=== PATIENT | male | born 1955 | race Caucasian/White ===

== ENCOUNTER 2018-09-17 05:50 | Inpatient (IN) | payer MEDICARE, OTHER ==
[~2018-09-17] VITALS: Ht 175.3 cm; Wt 66.8 kg
[2018-09-17] VITALS (11 sets, daily range): BP systolic 83–100; BP diastolic 53–69
[2018-09-17] MEDS ORDERED: azithromycin/NS 500mg/250ml 250 ML IV ONE ×2 (06:20→20:00)
[2018-09-17] MEDS ORDERED: NAPR220T67 PO ×2 (06:38→12:17)
[2018-09-17] MEDS ORDERED: ipratropium/albuterol 3ml nebule NEB ONE (06:55)
[2018-09-17] MEDS ORDERED: normal saline 1000ML IV soln IVB ONE ×3 (06:55→09:05)
[2018-09-17] MEDS ORDERED: fentaNYL/PF 50MCG/1 ML 2ML syringe IV ONE (07:10)
--- NOTE | 2018-09-17 07:11 | NUR ---
u Addendum: 09/17/18 at 0712 by RWILCOX US AT BEDSIDE
[2018-09-17] MEDS: K, MAG and/or Phos replacement - Verify level? MC SCH (08:00)
[2018-09-17] MEDS ORDERED: CefTRIAXone/D5W-Rocephin 1gm 50 ML IV ONE (08:00)
[2018-09-17] MEDS ORDERED: pantoprazole 40 MG vial IV SCH (08:00)
[2018-09-17] MEDS: CefTRIAXone/D5W-Rocephin 1gm 50 ML IV SCH (08:00)
--- NOTE | 2018-09-17 08:31 | NUR ---
PT AWARE WE NEED URINE. NOT FEELING A SENSATION THAT HE HAS TO URINATE. GIVING FLUIDS
[2018-09-17 08:32] LABS: BASOPHILS % (AUTO) 0 % (0-1); EOSINOPHILS # (AUTO) 0.1 X10'3 (0-0.9); EOSINOPHILS % (AUTO) 0.4 % (0-6); HEMATOCRIT 33.5 % (42.0-52.0); HEMOGLOBIN 10.8 g/dl (14.0-17.9); LYMPHOCYTES # (AUTO) 1.2 X10'3 (1.1-4.8); LYMPHOCYTES % (AUTO) 4.7 % (21-51); MEAN CORPUSCULAR HEMOGLOBIN 24.9 PG (27.0-31.0); MEAN CORPUSCULAR HGB CONC 32.3 g/dL (33.0-36.5); MEAN PLATELET VOLUME 7.7 FL (7.4-10.4); MONOCYTES # (AUTO) 0.3 X10'3 (0-0.9); MONOCYTES % (AUTO) 1.3 % (2-12); NEUTROPHILS # (AUTO) 22.8 X10'3 (1.8-7.7); NEUTROPHILS % (AUTO) 93.6 % (42-75); PLATELET COUNT 421 X10'3 (140-440); RED BLOOD COUNT 4.34 X10'6 (4.70-6.10); WHITE BLOOD COUNT 24.4 X10'3 (4.5-11.0)
[2018-09-17 08:46] LABS: ALANINE AMINOTRANSFERASE 16 U/L (12-78); ALBUMIN 1.8 G/DL (3.4-5.0); ALBUMIN/GLOBULIN RATIO 0.3 (1.1-1.5); ALKALINE PHOSPHATASE 191 IU/L (46-116); ANION GAP 13 (8-16); ASPARTATE AMINO TRANSFERASE 23 U/L (10-37); BILIRUBIN,TOTAL 1.6 MG/DL (0.1-1.0); BLOOD UREA NITROGEN 89 MG/DL (7-18); BUN/CREATININE RATIO 12.4 (5.4-32.0); CHLORIDE 97 MMOL/L (99-107); GLUCOSE 65 MG/DL (70-104); LIPASE < 50 U/L (73-393); POTASSIUM 4.9 MMOL/L (3.5-5.1); SODIUM 128 MMOL/L (135-145); TOTAL CARBON DIOXIDE 17.8 MMOL/L (24-32); TOTAL PROTEIN 7.3 G/DL (6.4-8.2); eGFR 8 ML/MIN
[2018-09-17 09:25] LABS: ANISOCYTOSIS 1+; MICROCYTOSIS 1+; PLATELET ESTIMATE NORMAL; TOTAL CELLS COUNTED 100
[2018-09-17 09:26] LABS: BURR CELLS 2+
[2018-09-17] MEDS ORDERED: normal saline 1000ml 1,000 ML IV ONE (09:50)
--- NOTE | 2018-09-17 10:16 | NUR ---
PT SITTING IN CHAIR TO HELP HIM BE MORE COMFORTABLE. PT STATES HE FEELS BETTER THAN HE HAS IN DAYS.
--- NOTE | 2018-09-17 10:50 | NUR ---
PT STARTED TO FEEL A LITTLE LIGHTHEADED WHEN TRANSFERING BACK TO THE BED. PT AWARE HE HAS TO STAY IN THE BED NOW DUE TO BP AND SYMPTOMS. PICC NURSE HAS.
--- NOTE | 2018-09-17 11:03 | NUR ---
PICC LINE NURSE AT BEDSIDE TO PUT THE PICC LINE IN.
[2018-09-17] MEDS ORDERED: magnesium 2GM in 50ml NS 50 ML IV PRN (11:30)
[2018-09-17] MEDS ORDERED: potassium Cl 20 mEq SR tablet PO PRN ×2 (11:30)
[2018-09-17] MEDS ORDERED: normal saline 1000ml 1,000 ML IV SCH (11:30)
[2018-09-17] MEDS ORDERED: acetaminophen 325mg tablet PO PRN (11:30)
[2018-09-17] MEDS ORDERED: Neutra Phos packet PO PRN (11:30)
[2018-09-17] MEDS ORDERED: sodium phosphate inj. 30 MMOL in dextrose 5%-water 250 ML IV PRN (11:30)
[2018-09-17] MEDS ORDERED: ondansetron/PF 4mg/2ml inj IV PRN (11:30)
[2018-09-17] MEDS ORDERED: magnesium Cl slow-release 64mg tablet PO PRN (11:30)
[2018-09-17] MEDS ORDERED: magnesium 4gm in 100ml NS 100 ML IV PRN (11:30)
[2018-09-17] MEDS ORDERED: sodium phosphate inj. 15 MMOL in dextrose 5%-water 150 ML IV PRN (11:30)
--- NOTE | 2018-09-17 11:39 | NUR ---
ADMISSION ORDERS HAVE BEEN PLACED. NOTICING THE MD PUT AN ORDER FOR THE PT TO GET PROTONIX AND ANOTHER MED ORDER FOR 8AM TODAY BUT IT NOW MAKES IT LOOKS LIKE THE MED IS OVERDUE BUT THE ORDER WAS JUST PLACED.
[2018-09-17] MEDS ORDERED: ESOMEPRAZOLE 40 MG VIAL IV ONE (12:05)
[2018-09-17 12:13] LABS: MAGNESIUM 1.6 MG/DL (1.5-2.4)
--- NOTE | 2018-09-17 12:29 | NUR ---
report to Precious ARAGON. pt is resting quietly on gurney, resp even and unlabored, skin p/w/d
--- NOTE | 2018-09-17 12:30 | NUR ---
patient transferred to the CICU from ER, patient is on 2 l NC , states no home oxygen. HR is 115 ST BP is 85/57. Patient is able to move from gurney to ICU bed without help and he is alert and oriented. 2 RN skin assessment completed and optifoam placed on sacrum per protocol. Patient oriented to the unit and given call light.
--- NOTE | 2018-09-17 18:27 | NUR ---
Problems reprioritized. Patient report given, questions answered & plan of care reviewed with Nolan ARAGON.
--- NOTE | 2018-09-17 18:30 | NUR ---
Patient in room CICU 2011. I have received report from Precious ARAGON and had the opportunity to ask questions and assume patient care.
[2018-09-17] MEDS: docusate sod 100mg capsule PO SCH (20:15)
[2018-09-17] MEDS: heparin, porcine 5000 units/ml vial SQ SCH (20:15)
[2018-09-17 23:30] LABS: CREATINE KINASE 20 U/L (39-308)
[2018-09-18] VITALS (23 sets, daily range): BP systolic 87–129; BP diastolic 55–77
[2018-09-18 02:55] LABS: BASOPHILS # (AUTO) 0.1 X10'3 (0-0.2); BASOPHILS % (AUTO) 0.2 % (0-1); EOSINOPHILS # (AUTO) 0.1 X10'3 (0-0.9); EOSINOPHILS % (AUTO) 0.2 % (0-6); HEMATOCRIT 27.8 % (42.0-52.0); HEMOGLOBIN 8.9 g/dl (14.0-17.9); LYMPHOCYTES # (AUTO) 3.4 X10'3 (1.1-4.8); LYMPHOCYTES % (AUTO) 10.8 % (21-51); MEAN CORPUSCULAR HEMOGLOBIN 24.5 PG (27.0-31.0); MEAN CORPUSCULAR HGB CONC 32.2 g/dL (33.0-36.5); MEAN CORPUSCULAR VOLUME 76.1 FL (78-98); MEAN PLATELET VOLUME 7.6 FL (7.4-10.4); MONOCYTES % (AUTO) 3.2 % (2-12); NEUTROPHILS # (AUTO) 26.7 X10'3 (1.8-7.7); NEUTROPHILS % (AUTO) 85.6 % (42-75); PLATELET COUNT 391 X10'3 (140-440); RED BLOOD COUNT 3.65 X10'6 (4.70-6.10); RED CELL DISTRIBUTION WIDTH 17.8 % (11.5-14.5)
[2018-09-18 03:06] LABS: WHITE BLOOD COUNT 31.2 X10'3 (4.5-11.0)
[2018-09-18 03:13] LABS: ALANINE AMINOTRANSFERASE 13 U/L (12-78); ALBUMIN 1.4 G/DL (3.4-5.0); ALBUMIN/GLOBULIN RATIO 0.3 (1.1-1.5); ALKALINE PHOSPHATASE 169 IU/L (46-116); ANION GAP 14 (8-16); ASPARTATE AMINO TRANSFERASE 20 U/L (10-37); BILIRUBIN,TOTAL 1.8 MG/DL (0.1-1.0); BLOOD UREA NITROGEN 93 MG/DL (7-18); BUN/CREATININE RATIO 12.7 (5.4-32.0); CALCIUM 8.2 MG/DL (8.5-10.1); CHLORIDE 99 MMOL/L (99-107); CREATININE 7.35 MG/DL (0.60-1.10); GLUCOSE 54 MG/DL (70-104); MAGNESIUM 1.7 MG/DL (1.5-2.4); PHOSPHORUS 4.3 MG/DL (2.3-4.5); POTASSIUM 5.9 MMOL/L (3.5-5.1); SODIUM 129 MMOL/L (135-145); TOTAL CARBON DIOXIDE 16.4 MMOL/L (24-32); TOTAL PROTEIN 6.3 G/DL (6.4-8.2); eGFR 8 ML/MIN
[2018-09-18 03:31] LABS: TOTAL CELLS COUNTED 100
[2018-09-18 03:32] LABS: ANISOCYTOSIS 1+; BURR CELLS 1+; MICROCYTOSIS 1+; PLATELET ESTIMATE NORMAL
--- NOTE | 2018-09-18 04:00 | NUR ---
pt bladder scanned at this time. showed no urine in bladder. continue to monitor
--- NOTE | 2018-09-18 05:06 | NUR ---
Ciaran Anguiano was notified regarding critical WBC's of 31. he is aware. no change in orders at this time.
[2018-09-18 05:26] LABS: OXYGEN SATURATION (MIXED VEN) 67.3 % (60-80); PO2 MIXED VENOUS (TEMP COR) 36.5 mmHg (35-46)
--- NOTE | 2018-09-18 06:26 | NUR ---
Problems reprioritized. Patient report given, questions answered & plan of care reviewed with Anbial ARAGON.
--- NOTE | 2018-09-18 06:54 | NUR ---
Patient in room CICU 2011. I have received report from Nolan ARAGON and had the opportunity to ask questions and assume patient care.
--- NOTE | 2018-09-18 07:31 | NUR ---
pt blood sugar 25 by accuchek. Pt sitting up in chair alert and oriented. Pt am labs showed a BS of 54. no interventions at that time. BS 65 on admit. Pt given 240ml of orange juice. will repeat BS 15 minutes after drinking Oj
[2018-09-18] MEDS: ESOMEPRAZOLE 40 MG VIAL IV SCH (07:55)
[2018-09-18] MEDS: CefTRIAXone/D5W-Rocephin 1gm 50 ML IV SCH (07:55)
[2018-09-18] MEDS: docusate sod 100mg capsule PO SCH ×2 (07:56→19:24)
[2018-09-18] MEDS: heparin, porcine 5000 units/ml vial SQ SCH ×2 (07:56→19:30)
[2018-09-18] MEDS: K, MAG and/or Phos replacement - Verify level? MC SCH (07:57)
[2018-09-18] MEDS ORDERED: dextrose 50%-water 50ml dispensing syringe IV ONE ×2 (08:13→08:25)
--- NOTE | 2018-09-18 08:23 | NUR ---
PT'S REPEAT BS 27. DEXTROSE 50ML IV ORDERED PER PROTOCOL AND GIVEN TO PT. REPEAT BS 98.
[2018-09-18] MEDS: sucralfate 1gm/10ml UD suspension PO SCH ×3 (11:59→23:13)
--- NOTE | 2018-09-18 12:52 | NUR ---
Problems reprioritized. Patient report given, questions answered & plan of care reviewed with JOCELYNN ARAGON.
[2018-09-18] MEDS: azithromycin/NS 500mg/250ml 250 ML IV SCH (13:19)
--- NOTE | 2018-09-18 14:19 | NUR ---
patient taken to nuc med
--- NOTE | 2018-09-18 15:02 | NUR ---
patient still at nuc med
--- NOTE | 2018-09-18 15:07 | NUR ---
patient returned to CICU
--- NOTE | 2018-09-18 16:08 | NUR ---
press technician at the bedside
--- NOTE | 2018-09-18 18:31 | NUR ---
Patient in room CICU 2011. I have received report from Precious ARAGON and had the opportunity to ask questions and assume patient care.
[2018-09-18] MEDS: lactobacillus rhamnosus 10,000 MMU CELLS/CAPSULE PO SCH (19:25)
[2018-09-18] MEDS ORDERED: dextrose ORAL solution 15 GM/59 ML bottle PO PRN (19:45)
[2018-09-18] MEDS ORDERED: dextrose 50%-water 50ml dispensing syringe IV PRN ×2 (19:45)
[2018-09-18] MEDS ORDERED: glucagon, human recombinant 1mg kit SUBCUT PRN (19:45)
[2018-09-18] MEDS ORDERED: dextrose 5%-1/2 normal saline 1,000 ML IV SCH (22:40)
[2018-09-18] MEDS: dextrose ORAL solution 15 GM/59 ML bottle PO PRN ×2 (22:44→23:15)
[2018-09-19] VITALS (23 sets, daily range): BP systolic 108–148; BP diastolic 47–88
[2018-09-19] MEDS ORDERED: phenylephrine inj 20 MG in normal saline 250ml IV soln 250 ML IV PRN (01:37)
[2018-09-19] MEDS ORDERED: DOBUTamine-DoBUTrex 500mg/D5W 250 ML IV PRN (01:40)
[2018-09-19] MEDS: dextrose ORAL solution 15 GM/59 ML bottle PO PRN (02:20)
[2018-09-19 02:33] LABS: BASOPHILS # (AUTO) 0.1 X10'3 (0-0.2); BASOPHILS % (AUTO) 0.2 % (0-1); EOSINOPHILS # (AUTO) 0.1 X10'3 (0-0.9); EOSINOPHILS % (AUTO) 0.4 % (0-6); HEMATOCRIT 29.4 % (42.0-52.0); HEMOGLOBIN 9.6 g/dl (14.0-17.9); LYMPHOCYTES # (AUTO) 0.8 X10'3 (1.1-4.8); LYMPHOCYTES % (AUTO) 2.6 % (21-51); MEAN CORPUSCULAR HEMOGLOBIN 24.7 PG (27.0-31.0); MEAN CORPUSCULAR HGB CONC 32.6 g/dL (33.0-36.5); MEAN CORPUSCULAR VOLUME 75.8 FL (78-98); MEAN PLATELET VOLUME 7.6 FL (7.4-10.4); MONOCYTES # (AUTO) 1.7 X10'3 (0-0.9); MONOCYTES % (AUTO) 5.5 % (2-12); NEUTROPHILS # (AUTO) 28.9 X10'3 (1.8-7.7); NEUTROPHILS % (AUTO) 91.3 % (42-75); PLATELET COUNT 413 X10'3 (140-440); RED BLOOD COUNT 3.88 X10'6 (4.70-6.10); RED CELL DISTRIBUTION WIDTH 17.8 % (11.5-14.5)
[2018-09-19 02:35] LABS: WHITE BLOOD COUNT 31.7 X10'3 (4.5-11.0)
[2018-09-19 02:42] LABS: ALANINE AMINOTRANSFERASE 14 U/L (12-78); ALBUMIN 1.4 G/DL (3.4-5.0); ALBUMIN/GLOBULIN RATIO 0.3 (1.1-1.5); ALKALINE PHOSPHATASE 356 IU/L (46-116); ANION GAP 13 (8-16); ASPARTATE AMINO TRANSFERASE 29 U/L (10-37); BILIRUBIN,TOTAL 2.1 MG/DL (0.1-1.0); BLOOD UREA NITROGEN 106 MG/DL (7-18); BUN/CREATININE RATIO 13.4 (5.4-32.0); CALCIUM 8.5 MG/DL (8.5-10.1); CHLORIDE 96 MMOL/L (99-107); CREATININE 7.94 MG/DL (0.60-1.10); GLUCOSE 73 MG/DL (70-104); MAGNESIUM 1.9 MG/DL (1.5-2.4); PHOSPHORUS 3.7 MG/DL (2.3-4.5); POTASSIUM 5.6 MMOL/L (3.5-5.1); SODIUM 125 MMOL/L (135-145); TOTAL CARBON DIOXIDE 15.8 MMOL/L (24-32); TOTAL PROTEIN 6.6 G/DL (6.4-8.2); eGFR 7 ML/MIN
[2018-09-19 02:53] LABS: ANISOCYTOSIS 1+; BURR CELLS 1+; HYPOCHROMASIA 1+; MICROCYTOSIS 1+; PLATELET ESTIMATE NORMAL; TOTAL CELLS COUNTED 100
[2018-09-19] MEDS: dextrose 5%-normal saline 1,000 ML IV SCH ×2 (03:44→20:36)
[2018-09-19] MEDS ORDERED: methylPREDNISolone sod succ 125mg/2ml vial IV ONE (03:45)
--- NOTE | 2018-09-19 06:30 | NUR ---
Problems reprioritized. Patient report given, questions answered & plan of care reviewed with Precious ARAGON.
--- NOTE | 2018-09-19 06:55 | NUR ---
I have reviewed and agree with all medications administered and interventions performed by Student Chay Burns
[2018-09-19] MEDS: K, MAG and/or Phos replacement - Verify level? MC SCH (08:00)
[2018-09-19] MEDS: docusate sod 100mg capsule PO SCH ×2 (08:00→20:00)
[2018-09-19] MEDS: lactobacillus rhamnosus 10,000 MMU CELLS/CAPSULE PO SCH ×2 (08:33→20:00)
[2018-09-19] MEDS: azithromycin/NS 500mg/250ml 250 ML IV SCH (08:33)
[2018-09-19] MEDS: heparin, porcine 5000 units/ml vial SQ SCH ×3 (08:33→22:43)
[2018-09-19] MEDS: CefTRIAXone/D5W-Rocephin 1gm 50 ML IV SCH (08:33)
[2018-09-19] MEDS: sucralfate 1gm/10ml UD suspension PO SCH ×3 (08:35→21:00)
[2018-09-19] MEDS: ESOMEPRAZOLE 40 MG VIAL IV SCH (08:35)
--- NOTE | 2018-09-19 08:48 | NUR ---
patient more confused today, pulling at lines and asking odd questions
[2018-09-19] MEDS ORDERED: normal saline 1000ml 250 ML IV PRN (09:35)
[2018-09-19] MEDS ORDERED: epoetin 20,000 units/ml inj IV ONE (09:35)
[2018-09-19] MEDS ORDERED: albumin (human) 25% 100ml IV 100 ML IV PRN (09:35)
[2018-09-19] MEDS ORDERED: heparin 1,000 units/ml 10ml inj HE ONE ×2 (09:40)
--- NOTE | 2018-09-19 09:46 | NUR ---
order received for tunnel dialysis cath and dialysis today , patient is aware and IR notified
[2018-09-19] MEDS ORDERED: LORazepam 2 mg/ml vial IV ONE (11:00)
[2018-09-19] MEDS ORDERED: lactulose 20gm/30ml cup PO PRN (11:30)
--- NOTE | 2018-09-19 11:30 | NUR ---
order received to give this patient 1mg ativan per Dr. reed due to increased agitation and anxiety
--- NOTE | 2018-09-19 11:33 | NUR ---
patient more confused than this morning, aware, Dr. Acevedo attempted to get consent at the bedside and patient was too confused to consent. Yeimi, the ex was named by the patient upon admission to make decisions for him in the event that he was unable to. Dr. Acevedo will be reaching out to her
[2018-09-19] MEDS ORDERED: heparin 1,000 units/ml 10ml inj ICATH ONE (15:20)
[2018-09-19] MEDS ORDERED: midazolam 2 mg/2 ml injection IV PRN (15:20)
[2018-09-19] MEDS ORDERED: fentaNYL/PF 50MCG/1 ML 2ML syringe IV PRN (15:20)
[2018-09-19] MEDS ORDERED: LIDOcaine 1%/PF 5ML 10 MG/ML VIAL SQ ONE (15:20)
--- NOTE | 2018-09-19 15:27 | NUR ---
patient being transferred to IR
[2018-09-19] MEDS ORDERED: LIDOcaine 1%/PF 5ML 10 MG/ML VIAL ONE (15:33)
[2018-09-19] MEDS ORDERED: heparin 1,000unit/ml 10ml vial 10 ML ONE (15:54)
[2018-09-19] MEDS ORDERED: midazolam 2 mg/2 ml injection ONE (15:55)
[2018-09-19] MEDS ORDERED: fentaNYL/PF 50MCG/1 ML 2ML syringe ONE (15:55)
[2018-09-19] MEDS: LORazepam 2 mg/ml vial IV PRN (17:18)
--- NOTE | 2018-09-19 17:30 | NUR ---
new order for ativan received from Dr. Bautista to keep patient calm during dialysis, patient was trying to sit straight up and pulling at lines
--- NOTE | 2018-09-19 18:15 | NUR ---
Patient in room CICU 2011. I have received report from JOCELYNN ARAGON and had the opportunity to ask questions and assume patient care.
--- NOTE | 2018-09-19 18:30 | NUR ---
pt is receiving dialysis, rn at bedside. pt is in a deep sleep, vital signs are stable, respirations are even and unlabored. pt responsive to deep pain. pt received ativan prior to shift change, medication effect therapeutic. pt is not awake enough to eat dinner at this time. will continue to monitor
--- NOTE | 2018-09-19 21:12 | NUR ---
pt remains responsive to deep pain. pt is not waking up enough to ensure pt will be able to safely swallow medications. vital signs satable. respirations even and unlabored. no change in condition. will continue to monitor.
[2018-09-20] VITALS (24 sets, daily range): BP systolic 78–127; BP diastolic 45–79
--- NOTE | 2018-09-20 02:00 | NUR ---
pt wakes up confused and tries to throw his legs out of bed and attempts to pull at lines. pt quickly wears himself out however he is not orientable. when the patient is asked questions pt generally responds with "get me out of her you fucking bitch" and attempts to kick you. pt does follow commands and will let lines go and lie down when asked. will continue to monitor.
[2018-09-20 02:51] LABS: BASOPHILS # (AUTO) 0.1 X10'3 (0-0.2); BASOPHILS % (AUTO) 0.3 % (0-1); EOSINOPHILS % (AUTO) 0 % (0-6); HEMATOCRIT 30.2 % (42.0-52.0); HEMOGLOBIN 9.8 g/dl (14.0-17.9); LYMPHOCYTES # (AUTO) 0.7 X10'3 (1.1-4.8); LYMPHOCYTES % (AUTO) 2.7 % (21-51); MEAN CORPUSCULAR HEMOGLOBIN 24.5 PG (27.0-31.0); MEAN CORPUSCULAR HGB CONC 32.4 g/dL (33.0-36.5); MEAN CORPUSCULAR VOLUME 75.6 FL (78-98); MEAN PLATELET VOLUME 7.7 FL (7.4-10.4); MONOCYTES # (AUTO) 2.2 X10'3 (0-0.9); MONOCYTES % (AUTO) 8.6 % (2-12); NEUTROPHILS # (AUTO) 22.9 X10'3 (1.8-7.7); NEUTROPHILS % (AUTO) 88.4 % (42-75); PLATELET COUNT 397 X10'3 (140-440); RED BLOOD COUNT 3.99 X10'6 (4.70-6.10); RED CELL DISTRIBUTION WIDTH 17.9 % (11.5-14.5)
[2018-09-20 02:58] LABS: ALANINE AMINOTRANSFERASE 10 U/L (12-78); ALBUMIN 1.2 G/DL (3.4-5.0); ALBUMIN/GLOBULIN RATIO 0.2 (1.1-1.5); ALKALINE PHOSPHATASE 262 IU/L (46-116); ANION GAP 12 (8-16); ASPARTATE AMINO TRANSFERASE 20 U/L (10-37); BLOOD UREA NITROGEN 72 MG/DL (7-18); BUN/CREATININE RATIO 12.2 (5.4-32.0); CALCIUM 8.2 MG/DL (8.5-10.1); CHLORIDE 97 MMOL/L (99-107); CREATININE 5.88 MG/DL (0.60-1.10); GLUCOSE 107 MG/DL (70-104); MAGNESIUM 2.1 MG/DL (1.5-2.4); PHOSPHORUS 6.2 MG/DL (2.3-4.5); POTASSIUM 5.2 MMOL/L (3.5-5.1); SODIUM 130 MMOL/L (135-145); TOTAL CARBON DIOXIDE 21.2 MMOL/L (24-32); TOTAL PROTEIN 6.1 G/DL (6.4-8.2); eGFR 10 ML/MIN
[2018-09-20 03:00] LABS: WHITE BLOOD COUNT 25.9 X10'3 (4.5-11.0)
--- NOTE | 2018-09-20 06:10 | NUR ---
Patient in room CICU 2011. I have received report from Nayla ARAGON and had the opportunity to ask questions and assume patient care.
[2018-09-20 07:58] LABS: ANISOCYTOSIS 1+; HYPOCHROMASIA 1+; MICROCYTOSIS 1+; PLATELET ESTIMATE NORMAL; POIKILOCYTOSIS FEW; POLYCHROMASIA FEW; TARGET CELLS FEW; TOTAL CELLS COUNTED 100
[2018-09-20] MEDS: CefTRIAXone/D5W-Rocephin 1gm 50 ML IV SCH (07:59)
[2018-09-20] MEDS: lactobacillus rhamnosus 10,000 MMU CELLS/CAPSULE PO SCH ×2 (08:00→19:45)
[2018-09-20] MEDS ORDERED: heparin 1,000 units/ml 10ml inj HE ONE ×2 (08:00)
[2018-09-20] MEDS ORDERED: heparin 1,000unit/ml 10ml vial 10 ML IV ONE (08:00)
[2018-09-20] MEDS: docusate sod 100mg capsule PO SCH ×2 (08:00→19:45)
[2018-09-20] MEDS: azithromycin/NS 500mg/250ml 250 ML IV SCH (08:00)
[2018-09-20] MEDS ORDERED: albumin (human) 25% 100ml IV 100 ML IV PRN (08:00)
[2018-09-20] MEDS: K, MAG and/or Phos replacement - Verify level? MC SCH (08:00)
[2018-09-20] MEDS ORDERED: normal saline 1000ml 250 ML IV PRN (08:00)
[2018-09-20] MEDS ORDERED: epoetin 20,000 units/ml inj IV ONE (08:00)
[2018-09-20] MEDS: dextrose 5%-normal saline 1,000 ML IV SCH (08:06)
[2018-09-20] MEDS: sucralfate 1gm/10ml UD suspension PO SCH ×4 (08:15→19:45)
[2018-09-20] MEDS: ESOMEPRAZOLE 40 MG VIAL IV SCH (08:15)
[2018-09-20] MEDS: heparin, porcine 5000 units/ml vial SQ SCH ×2 (08:34→19:46)
[2018-09-20] MEDS: LORazepam 2 mg/ml vial IV PRN (09:17)
--- NOTE | 2018-09-20 09:30 | NUR ---
Dialysis here, patient to be given Ativan for anxiety if continues to be restless.
--- NOTE | 2018-09-20 12:41 | NUR ---
Patient resting with eyes closed, dialysis almost complete. 1 L removed. Sitter at bedside.
--- NOTE | 2018-09-20 18:20 | NUR ---
Problems reprioritized. Patient report given, questions answered & plan of care reviewed with FAHEEM ARAGON.
--- NOTE | 2018-09-20 18:30 | NUR ---
Patient in room CICU 2012. I have received report from MAHESH Golden and had the opportunity to ask questions and assume patient care.
[2018-09-21] VITALS (24 sets, daily range): BP systolic 112–138; BP diastolic 66–84
[2018-09-21] MEDS: dextrose 5%-normal saline 1,000 ML IV SCH ×2 (01:42→19:52)
[2018-09-21 02:28] LABS: BASOPHILS # (AUTO) 0.1 X10'3 (0-0.2); BASOPHILS % (AUTO) 0.2 % (0-1); EOSINOPHILS # (AUTO) 0.1 X10'3 (0-0.9); EOSINOPHILS % (AUTO) 0.3 % (0-6); HEMOGLOBIN 9.3 g/dl (14.0-17.9); LYMPHOCYTES # (AUTO) 2.4 X10'3 (1.1-4.8); LYMPHOCYTES % (AUTO) 9.1 % (21-51); MEAN CORPUSCULAR HEMOGLOBIN 24.9 PG (27.0-31.0); MEAN CORPUSCULAR HGB CONC 33.3 g/dL (33.0-36.5); MEAN CORPUSCULAR VOLUME 74.6 FL (78-98); MEAN PLATELET VOLUME 7.6 FL (7.4-10.4); MONOCYTES # (AUTO) 1.5 X10'3 (0-0.9); MONOCYTES % (AUTO) 5.7 % (2-12); NEUTROPHILS % (AUTO) 84.7 % (42-75); PLATELET COUNT 422 X10'3 (140-440); RED BLOOD COUNT 3.76 X10'6 (4.70-6.10); RED CELL DISTRIBUTION WIDTH 17.6 % (11.5-14.5)
[2018-09-21 02:29] LABS: WHITE BLOOD COUNT 25.9 X10'3 (4.5-11.0)
[2018-09-21 02:39] LABS: ALANINE AMINOTRANSFERASE 14 U/L (12-78); ALBUMIN 1.2 G/DL (3.4-5.0); ALBUMIN/GLOBULIN RATIO 0.2 (1.1-1.5); ALKALINE PHOSPHATASE 289 IU/L (46-116); ANION GAP 8 (8-16); ASPARTATE AMINO TRANSFERASE 30 U/L (10-37); BILIRUBIN,TOTAL 0.9 MG/DL (0.1-1.0); BLOOD UREA NITROGEN 51 MG/DL (7-18); BUN/CREATININE RATIO 11.3 (5.4-32.0); CALCIUM 7.4 MG/DL (8.5-10.1); CHLORIDE 99 MMOL/L (99-107); GLUCOSE 89 MG/DL (70-104); MAGNESIUM 1.9 MG/DL (1.5-2.4); PHOSPHORUS 3.1 MG/DL (2.3-4.5); POTASSIUM 4.1 MMOL/L (3.5-5.1); SODIUM 133 MMOL/L (135-145); TOTAL CARBON DIOXIDE 26.5 MMOL/L (24-32); TOTAL PROTEIN 6.1 G/DL (6.4-8.2); eGFR 13 ML/MIN
[2018-09-21 03:20] LABS: TOTAL CELLS COUNTED 100
[2018-09-21 03:21] LABS: ANISOCYTOSIS 1+; MICROCYTOSIS 1+; PLATELET ESTIMATE NORMAL
[2018-09-21 03:22] LABS: TARGET CELLS FEW
--- NOTE | 2018-09-21 06:28 | NUR ---
Problems reprioritized. Patient report given, questions answered & plan of care reviewed with MAHESH Power.
--- NOTE | 2018-09-21 06:33 | NUR ---
Patient in room CICU 2011. I have received report from Paty ARAGON and had the opportunity to ask questions and assume patient care. patient laying in bed with eyes closed, D5/NS infusing to R PICC, vital signs stable no signs of distress will continue to monitor
--- NOTE | 2018-09-21 07:26 | NUR ---
During my assessment, found patients L FA 20G Iv to be missing the Hub, D/c the L FA IV, cannula intact patient tolerated well,
[2018-09-21] MEDS: docusate sod 100mg capsule PO SCH ×2 (08:00→19:30)
[2018-09-21] MEDS: K, MAG and/or Phos replacement - Verify level? MC SCH (08:00)
[2018-09-21] MEDS: azithromycin/NS 500mg/250ml 250 ML IV SCH (08:25)
[2018-09-21] MEDS: sucralfate 1gm/10ml UD suspension PO SCH ×4 (08:26→19:52)
[2018-09-21] MEDS: heparin, porcine 5000 units/ml vial SQ SCH ×2 (08:26→19:52)
[2018-09-21] MEDS: lactobacillus rhamnosus 10,000 MMU CELLS/CAPSULE PO SCH ×2 (08:26→19:52)
[2018-09-21] MEDS: CefTRIAXone/D5W-Rocephin 1gm 50 ML IV SCH (08:26)
[2018-09-21] MEDS: ESOMEPRAZOLE 40 MG VIAL IV SCH (08:30)
[2018-09-21] MEDS: acetaminophen 325mg tablet PO PRN (10:17)
--- NOTE | 2018-09-21 12:54 | NUR ---
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
--- NOTE | 2018-09-21 18:25 | NUR ---
Problems reprioritized. Patient report given, questions answered & plan of care reviewed with Martha ARAGON.
--- NOTE | 2018-09-21 18:30 | NUR ---
Patient in room CICU 2011. I have received report from Jannet ARAGON and had the opportunity to ask questions and assume patient care.
[2018-09-21] MEDS: HYDROcodone/acetaminophen 5mg/325mg tablet PO PRN (21:35)
[2018-09-21] MEDS: LORazepam 2 mg/ml vial IV PRN (22:12)
--- NOTE | 2018-09-21 22:12 | NUR ---
Pt restless, agitated,tachycardic. Sitter at bedside. Ativan IV given for agitation. Gardiner given earlier for pain level of 4-6 per non verbal scale.
[2018-09-22] VITALS (24 sets, daily range): BP systolic 116–159; BP diastolic 52–92
--- NOTE | 2018-09-22 01:15 | NUR ---
Pt appears to be sleeping, awakens to voice but falls back to sleep quickly. Sitter at bedside.
[2018-09-22 02:49] LABS: BASOPHILS # (AUTO) 0.1 X10'3 (0-0.2); BASOPHILS % (AUTO) 0.3 % (0-1); EOSINOPHILS # (AUTO) 0.4 X10'3 (0-0.9); EOSINOPHILS % (AUTO) 1.4 % (0-6); HEMATOCRIT 25.7 % (42.0-52.0); HEMOGLOBIN 8.5 g/dl (14.0-17.9); LYMPHOCYTES % (AUTO) 9.8 % (21-51); MEAN CORPUSCULAR HEMOGLOBIN 24.8 PG (27.0-31.0); MEAN CORPUSCULAR VOLUME 75.2 FL (78-98); MEAN PLATELET VOLUME 7.7 FL (7.4-10.4); MONOCYTES # (AUTO) 1.5 X10'3 (0-0.9); NEUTROPHILS # (AUTO) 25.5 X10'3 (1.8-7.7); NEUTROPHILS % (AUTO) 83.5 % (42-75); PLATELET COUNT 437 X10'3 (140-440); RED BLOOD COUNT 3.42 X10'6 (4.70-6.10); RED CELL DISTRIBUTION WIDTH 17.3 % (11.5-14.5)
[2018-09-22 02:59] LABS: ALANINE AMINOTRANSFERASE 15 U/L (12-78); ALBUMIN 1.1 G/DL (3.4-5.0); ALBUMIN/GLOBULIN RATIO 0.2 (1.1-1.5); ALKALINE PHOSPHATASE 283 IU/L (46-116); ANION GAP 9 (8-16); ASPARTATE AMINO TRANSFERASE 30 U/L (10-37); BILIRUBIN,TOTAL 0.8 MG/DL (0.1-1.0); BLOOD UREA NITROGEN 59 MG/DL (7-18); BUN/CREATININE RATIO 10.7 (5.4-32.0); CALCIUM 7.6 MG/DL (8.5-10.1); CHLORIDE 100 MMOL/L (99-107); CREATININE 5.53 MG/DL (0.60-1.10); GLUCOSE 94 MG/DL (70-104); MAGNESIUM 1.9 MG/DL (1.5-2.4); POTASSIUM 3.9 MMOL/L (3.5-5.1); SODIUM 131 MMOL/L (135-145); TOTAL CARBON DIOXIDE 22.2 MMOL/L (24-32); TOTAL PROTEIN 5.9 G/DL (6.4-8.2); eGFR 11 ML/MIN
[2018-09-22 03:13] LABS: WHITE BLOOD COUNT 30.5 X10'3 (4.5-11.0)
--- NOTE | 2018-09-22 04:34 | NUR ---
Pt awakens quickly, pulls at gown but settles back down with reassurance. Sitter at the bedside.
--- NOTE | 2018-09-22 06:18 | NUR ---
Problems reprioritized. Patient report given, questions answered & plan of care reviewed with Jannet ARAGON.
[2018-09-22 06:27] LABS: TOTAL CELLS COUNTED 100
[2018-09-22 06:28] LABS: ANISOCYTOSIS 1+; MICROCYTOSIS 1+; PLATELET ESTIMATE NORMAL; TARGET CELLS FEW
--- NOTE | 2018-09-22 07:03 | NUR ---
Patient in room CICU 2011. I have received report from Martha ARAGON and had the opportunity to ask questions and assume patient care. Patient laying in bed watching tv, D5ns infusing to R Picc line, R tdc Hep locked, vital signs stable, no signs of distress will continue to monitor
[2018-09-22] MEDS: sucralfate 1gm/10ml UD suspension PO SCH ×4 (07:09→20:06)
[2018-09-22] MEDS ORDERED: heparin 1,000unit/ml 10ml vial 10 ML IV ONE (08:00)
[2018-09-22] MEDS ORDERED: heparin 1,000 units/ml 10ml inj HE ONE ×2 (08:00)
[2018-09-22] MEDS: docusate sod 100mg capsule PO SCH ×2 (08:00→20:06)
[2018-09-22] MEDS ORDERED: normal saline 1000ml 250 ML IV PRN (08:00)
[2018-09-22] MEDS ORDERED: epoetin 20,000 units/ml inj IV ONE (08:00)
[2018-09-22] MEDS: K, MAG and/or Phos replacement - Verify level? MC SCH (08:08)
[2018-09-22] MEDS: CefTRIAXone/D5W-Rocephin 1gm 50 ML IV SCH (08:31)
[2018-09-22] MEDS: ESOMEPRAZOLE 40 MG VIAL IV SCH (08:32)
[2018-09-22] MEDS: heparin, porcine 5000 units/ml vial SQ SCH ×2 (08:32→20:07)
[2018-09-22] MEDS: lactobacillus rhamnosus 10,000 MMU CELLS/CAPSULE PO SCH ×2 (08:33→20:06)
[2018-09-22] MEDS: nicotine 21mg patch - 24 hr TD SCH ×2 (10:38→20:06)
[2018-09-22] MEDS: LORazepam 2 mg/ml vial IV PRN ×3 (10:46→16:47)
[2018-09-22 13:11] LABS: HBSAG SCREEN Negative (Negative)
[2018-09-22] MEDS: dextrose 5%-normal saline 1,000 ML IV SCH ×2 (14:55→20:36)
--- NOTE | 2018-09-22 15:46 | NUR ---
Patient presented to ED with malaise, cough, diarrhea, azotemia, acute renal failure. Per H&P patient over exerted himself if the heat with limited water for hydration. admitted with acute renal failure, is HD dependent and receiving HD today, receiving treatment for possible right lower lobe pneumonia. Very poor PO intake, 0-25% average. Per MD note patient is encephalopathic. per physical assessment pt is uncooperative, is confused and has sitter at bedside. A/O x2; poor PO intake may be associated with his mental state. Recommend: 1. continue oral diet 2. monitor need and acceptance of ONS given suboptimal intake 3. wt per rx 4. bowel care as needed Addendum: 09/22/18 at [address] Amended: Links added.
--- NOTE | 2018-09-22 18:24 | NUR ---
Problems reprioritized. Patient report given, questions answered & plan of care reviewed with Martha ARAGON and Brandon ARAGON.
--- NOTE | 2018-09-22 18:30 | NUR ---
Patient in room CICU 2011. I have received report from Jannet ARAGON and had the opportunity to ask questions and assume patient care.
--- NOTE | 2018-09-22 19:52 | NUR ---
Pt impulsive, pulls at gown and NC, requiring close monitoring. Lung sounds coarse, on 3LNC. Josette at bedside, orders received.
--- NOTE | 2018-09-22 20:23 | NUR ---
patient up to bedside commode with 1 person assist, will evaluate bm when patient is finished back in bed
[2018-09-22] MEDS ORDERED: albuterol 2.5 MG/3 ML nebule NEB PRN (20:50)
--- NOTE | 2018-09-22 22:12 | NUR ---
PATIENT IN BED EYES CLOSED RR EVEN UN LABORED NO OBSERVEABLE S/S OF ACUTE STRESS AT THIS TIME
[2018-09-23] VITALS (21 sets, daily range): BP systolic 125–161; BP diastolic 73–98
[2018-09-23 02:44] LABS: BASOPHILS # (AUTO) 0.1 X10'3 (0-0.2); BASOPHILS % (AUTO) 0.3 % (0-1); EOSINOPHILS # (AUTO) 0.2 X10'3 (0-0.9); EOSINOPHILS % (AUTO) 0.8 % (0-6); HEMATOCRIT 24.7 % (42.0-52.0); HEMOGLOBIN 8.2 g/dl (14.0-17.9); LYMPHOCYTES # (AUTO) 3.2 X10'3 (1.1-4.8); MEAN CORPUSCULAR HEMOGLOBIN 25.1 PG (27.0-31.0); MEAN CORPUSCULAR HGB CONC 33.2 g/dL (33.0-36.5); MEAN CORPUSCULAR VOLUME 75.6 FL (78-98); MEAN PLATELET VOLUME 7.7 FL (7.4-10.4); MONOCYTES # (AUTO) 1.1 X10'3 (0-0.9); MONOCYTES % (AUTO) 4.1 % (2-12); NEUTROPHILS # (AUTO) 22.3 X10'3 (1.8-7.7); NEUTROPHILS % (AUTO) 82.8 % (42-75); PLATELET COUNT 438 X10'3 (140-440); RED BLOOD COUNT 3.27 X10'6 (4.70-6.10); RED CELL DISTRIBUTION WIDTH 16.6 % (11.5-14.5)
[2018-09-23 02:46] LABS: ALANINE AMINOTRANSFERASE 17 U/L (12-78); ALBUMIN 1.1 G/DL (3.4-5.0); ALBUMIN/GLOBULIN RATIO 0.2 (1.1-1.5); ALKALINE PHOSPHATASE 246 IU/L (46-116); ANION GAP 7 (8-16); ASPARTATE AMINO TRANSFERASE 29 U/L (10-37); BILIRUBIN,TOTAL 0.7 MG/DL (0.1-1.0); BLOOD UREA NITROGEN 33 MG/DL (7-18); BUN/CREATININE RATIO 8.1 (5.4-32.0); CALCIUM 7.2 MG/DL (8.5-10.1); CHLORIDE 101 MMOL/L (99-107); CREATININE 4.08 MG/DL (0.60-1.10); GLUCOSE 120 MG/DL (70-104); MAGNESIUM 1.7 MG/DL (1.5-2.4); PHOSPHORUS 2.7 MG/DL (2.3-4.5); POTASSIUM 3.9 MMOL/L (3.5-5.1); SODIUM 133 MMOL/L (135-145); TOTAL CARBON DIOXIDE 25.5 MMOL/L (24-32); TOTAL PROTEIN 6.2 G/DL (6.4-8.2); eGFR 15 ML/MIN
[2018-09-23 02:58] LABS: WHITE BLOOD COUNT 26.9 X10'3 (4.5-11.0)
[2018-09-23 03:54] LABS: ANISOCYTOSIS 1+; MICROCYTOSIS 1+; PLATELET ESTIMATE NORMAL; TOTAL CELLS COUNTED 100
[2018-09-23 03:55] LABS: HYPOCHROMASIA 1+; TARGET CELLS FEW
--- NOTE | 2018-09-23 04:34 | NUR ---
PATIENTS SISTER CALLED "ERIC." CHECKING UP ON STATUS AND VERBALIZED SHE WILL CALL IN MORNING AROUND BREAKFAST
--- NOTE | 2018-09-23 05:22 | NUR ---
Assisted patient to chair with 2 person assist. Tolerated well, answering questions appropriately. Maintaining sats with 1LNC. Using IS and flutter valve independently.
--- NOTE | 2018-09-23 06:18 | NUR ---
Orientee documentation: I have reviewed and agree with all interventions, assessments performed and documented by Brandon ARAGON. [place]ee Medication Administration: For this medication-pass time frame, all medication were reviewed, dispensed, administered and documented per hospital policy by Brandon ARAGON .
[2018-09-23] MEDS: K, MAG and/or Phos replacement - Verify level? MC SCH (08:00)
[2018-09-23] MEDS: sucralfate 1gm/10ml UD suspension PO SCH (08:15)
[2018-09-23] MEDS: ESOMEPRAZOLE 40 MG VIAL IV SCH (08:15)
[2018-09-23] MEDS: heparin, porcine 5000 units/ml vial SQ SCH ×2 (08:16→19:25)
[2018-09-23] MEDS: lactobacillus rhamnosus 10,000 MMU CELLS/CAPSULE PO SCH ×2 (08:16→19:25)
[2018-09-23] MEDS: docusate sod 100mg capsule PO SCH ×2 (08:16→19:25)
[2018-09-23] MEDS: nicotine 21mg patch - 24 hr TD SCH (08:17)
[2018-09-23] MEDS: CefTRIAXone/D5W-Rocephin 1gm 50 ML IV SCH (08:17)
--- NOTE | 2018-09-23 14:36 | NUR ---
Consult received re: new ESRD with poor self-care. Patient continues with intermittent confusion per physical assessment. PO intake of protein has improved to 100% PO of his meat this morning and 50% at lunch. Will continue to follow patient. Addendum: 09/23/18 at [address] Amended: Links added.
--- NOTE | 2018-09-23 15:10 | NUR ---
Notified DR. Shoemaker of increased swelling to right arm. PICC line is present in that arm. Order received for venous ultrasound to
[2018-09-23] MEDS: acetaminophen 325mg tablet PO PRN (16:50)
--- NOTE | 2018-09-23 17:38 | NUR ---
Report given to MAHESH Lang. All questions answered. Patient transferred via wheelchair accompanied by RN to room 3028Y.
--- NOTE | 2018-09-23 17:53 | NUR ---
Pt is in room alert and oriented X4 in no apparent distress. Vital signs obtained and call light given. 2 RN skin check complete and did a focused assessment on the pt. Will continue to monitor.
--- NOTE | 2018-09-23 18:18 | NUR ---
Patient in room PCU 3023. I have received report from Katja and had the opportunity to ask questions and assume patient care.
--- NOTE | 2018-09-23 18:19 | NUR ---
Problems reprioritized. Patient report given, questions answered & plan of care reviewed with Anette AARGON.
[2018-09-23] MEDS: LORazepam 2 mg/ml vial IV PRN (23:52)
[2018-09-24 03:00] VITALS: BP 157/89
[2018-09-24 06:02] LABS: BASOPHILS # (AUTO) 0.1 X10'3 (0-0.2); BASOPHILS % (AUTO) 0.5 % (0-1); EOSINOPHILS # (AUTO) 0.4 X10'3 (0-0.9); EOSINOPHILS % (AUTO) 1.6 % (0-6); HEMATOCRIT 23.8 % (42.0-52.0); HEMOGLOBIN 7.8 g/dl (14.0-17.9); LYMPHOCYTES # (AUTO) 2.6 X10'3 (1.1-4.8); LYMPHOCYTES % (AUTO) 10.7 % (21-51); MEAN CORPUSCULAR HEMOGLOBIN 24.8 PG (27.0-31.0); MEAN CORPUSCULAR HGB CONC 32.8 g/dL (33.0-36.5); MEAN CORPUSCULAR VOLUME 75.7 FL (78-98); MEAN PLATELET VOLUME 8.3 FL (7.4-10.4); MONOCYTES # (AUTO) 0.6 X10'3 (0-0.9); MONOCYTES % (AUTO) 2.6 % (2-12); NEUTROPHILS # (AUTO) 20.2 X10'3 (1.8-7.7); NEUTROPHILS % (AUTO) 84.6 % (42-75); PLATELET COUNT 477 X10'3 (140-440); RED BLOOD COUNT 3.14 X10'6 (4.70-6.10); RED CELL DISTRIBUTION WIDTH 16.9 % (11.5-14.5); WHITE BLOOD COUNT 23.9 X10'3 (4.5-11.0)
--- NOTE | 2018-09-24 06:10 | NUR ---
Problems reprioritized. Patient report given, questions answered & plan of care reviewed with Denis.
[2018-09-24 06:28] LABS: ALANINE AMINOTRANSFERASE 14 U/L (12-78); ALBUMIN 1.1 G/DL (3.4-5.0); ALBUMIN/GLOBULIN RATIO 0.2 (1.1-1.5); ALKALINE PHOSPHATASE 208 IU/L (46-116); ANION GAP 9 (8-16); ASPARTATE AMINO TRANSFERASE 24 U/L (10-37); BILIRUBIN,TOTAL 0.5 MG/DL (0.1-1.0); BLOOD UREA NITROGEN 46 MG/DL (7-18); BUN/CREATININE RATIO 8.8 (5.4-32.0); CALCIUM 7.2 MG/DL (8.5-10.1); CHLORIDE 99 MMOL/L (99-107); GLUCOSE 82 MG/DL (70-104); MAGNESIUM 1.8 MG/DL (1.5-2.4); PHOSPHORUS 3.7 MG/DL (2.3-4.5); POTASSIUM 4.1 MMOL/L (3.5-5.1); SODIUM 132 MMOL/L (135-145); TOTAL CARBON DIOXIDE 24.2 MMOL/L (24-32); TOTAL PROTEIN 6.3 G/DL (6.4-8.2); eGFR 11 ML/MIN
--- NOTE | 2018-09-24 06:38 | NUR ---
Patient in room PCU 3023. I have received report from Anette ARAGON and had the opportunity to ask questions and assume patient care. Pt sitting on bedside, resting in no apparent distress, will continue to monitor.
[2018-09-24 07:00] VITALS: BP 147/87
[2018-09-24 07:41] LABS: ANISOCYTOSIS 1+; MICROCYTOSIS 1+; PLATELET ESTIMATE INCREASED; TOTAL CELLS COUNTED 100
[2018-09-24 07:42] LABS: HYPOCHROMASIA 2+
[2018-09-24] MEDS ORDERED: normal saline 1000ml 250 ML IV PRN (08:00)
[2018-09-24] MEDS ORDERED: epoetin 20,000 units/ml inj IV ONE (08:00)
[2018-09-24] MEDS ORDERED: heparin 1,000 units/ml 10ml inj HE ONE ×2 (08:00)
[2018-09-24] MEDS ORDERED: heparin 1,000unit/ml 10ml vial 10 ML IV ONE (08:00)
[2018-09-24] MEDS: docusate sod 100mg capsule PO SCH ×2 (08:26→19:23)
[2018-09-24] MEDS: lactobacillus rhamnosus 10,000 MMU CELLS/CAPSULE PO SCH ×2 (08:26→19:23)
[2018-09-24] MEDS: heparin, porcine 5000 units/ml vial SQ SCH ×2 (08:27→19:23)
[2018-09-24] MEDS: nicotine 21mg patch - 24 hr TD SCH (08:28)
[2018-09-24] MEDS: CefTRIAXone/D5W-Rocephin 1gm 50 ML IV SCH (08:28)
[2018-09-24] MEDS: HYDROcodone/acetaminophen 5mg/325mg tablet PO PRN (09:54)
[2018-09-24 11:00] VITALS: BP 154/88
[2018-09-24] MEDS: LORazepam 2 mg/ml vial IV PRN ×2 (12:25→19:22)
[2018-09-24 15:00] VITALS: BP 136/85
--- NOTE | 2018-09-24 17:43 | NUR ---
Patient has Temp Dialysis catheter in place properly functioning at this time, with Increased WBC Order for Tunneled Dialysis catheter moved to Saturday by Dr Sands. Floor Nurse informed
--- NOTE | 2018-09-24 18:13 | NUR ---
Problems reprioritized. Patient report given, questions answered & plan of care reviewed with Anette ARAGON.
--- NOTE | 2018-09-24 18:47 | NUR ---
Patient in room PCU 3023. I have received report from JENNIFER and had the opportunity to ask questions and assume patient care.
[2018-09-24 19:00] VITALS: BP 135/76
[2018-09-24 23:00] VITALS: BP 134/79
[2018-09-25 02:00] VITALS: BP 149/85
[2018-09-25 04:55] LABS: BASOPHILS # (AUTO) 0.2 X10'3 (0-0.2); BASOPHILS % (AUTO) 0.7 % (0-1); EOSINOPHILS # (AUTO) 0.2 X10'3 (0-0.9); EOSINOPHILS % (AUTO) 0.8 % (0-6); HEMATOCRIT 23.4 % (42.0-52.0); HEMOGLOBIN 7.7 g/dl (14.0-17.9); LYMPHOCYTES # (AUTO) 3.1 X10'3 (1.1-4.8); LYMPHOCYTES % (AUTO) 14.5 % (21-51); MEAN CORPUSCULAR HEMOGLOBIN 24.9 PG (27.0-31.0); MEAN CORPUSCULAR HGB CONC 32.8 g/dL (33.0-36.5); MEAN CORPUSCULAR VOLUME 75.8 FL (78-98); MONOCYTES % (AUTO) 4.6 % (2-12); NEUTROPHILS # (AUTO) 16.9 X10'3 (1.8-7.7); NEUTROPHILS % (AUTO) 79.4 % (42-75); PLATELET COUNT 564 X10'3 (140-440); RED BLOOD COUNT 3.09 X10'6 (4.70-6.10); RED CELL DISTRIBUTION WIDTH 16.8 % (11.5-14.5); WHITE BLOOD COUNT 21.3 X10'3 (4.5-11.0)
[2018-09-25 05:13] LABS: ALANINE AMINOTRANSFERASE 14 U/L (12-78); ALBUMIN 1.1 G/DL (3.4-5.0); ALBUMIN/GLOBULIN RATIO 0.2 (1.1-1.5); ALKALINE PHOSPHATASE 197 IU/L (46-116); ANION GAP 6 (8-16); ASPARTATE AMINO TRANSFERASE 23 U/L (10-37); BILIRUBIN,TOTAL 0.4 MG/DL (0.1-1.0); BLOOD UREA NITROGEN 29 MG/DL (7-18); BUN/CREATININE RATIO 7.3 (5.4-32.0); CALCIUM 7.6 MG/DL (8.5-10.1); CHLORIDE 100 MMOL/L (99-107); CREATININE 3.99 MG/DL (0.60-1.10); GLUCOSE 90 MG/DL (70-104); MAGNESIUM 1.7 MG/DL (1.5-2.4); PHOSPHORUS 3.4 MG/DL (2.3-4.5); SODIUM 132 MMOL/L (135-145); TOTAL CARBON DIOXIDE 25.9 MMOL/L (24-32); TOTAL PROTEIN 6.6 G/DL (6.4-8.2); eGFR 15 ML/MIN
[2018-09-25 06:00] VITALS: BP 155/85
--- NOTE | 2018-09-25 06:09 | NUR ---
Problems reprioritized. Patient report given, questions answered & plan of care reviewed with Nikita.
--- NOTE | 2018-09-25 06:10 | NUR ---
Patient in room PCU 3023. I have received report from Anette ARAGON and had the opportunity to ask questions and assume patient care.
[2018-09-25] MEDS: docusate sod 100mg capsule PO SCH ×2 (08:16→20:58)
[2018-09-25] MEDS: lactobacillus rhamnosus 10,000 MMU CELLS/CAPSULE PO SCH ×2 (08:16→20:58)
[2018-09-25] MEDS: CefTRIAXone/D5W-Rocephin 1gm 50 ML IV SCH (08:16)
[2018-09-25] MEDS: heparin, porcine 5000 units/ml vial SQ SCH ×2 (08:16→20:00)
[2018-09-25] MEDS: nicotine 21mg patch - 24 hr TD SCH (08:17)
[2018-09-25 15:15] VITALS: BP 154/87
[2018-09-25] MEDS: LORazepam 2 mg/ml vial IV PRN (15:25)
[2018-09-25 18:18] VITALS: BP 150/86
--- NOTE | 2018-09-25 18:35 | NUR ---
Problems reprioritized. Patient report given, questions answered & plan of care reviewed with Radha ARAGON.
--- NOTE | 2018-09-25 18:47 | NUR ---
Patient in room U 3023. I have received report from MAHESH Shelton and had the opportunity to ask questions and assume patient care. Addendum: 09/25/18 at 1847 by Yeimi Harris RN Amended: Links added.
[2018-09-25 22:00] VITALS: BP 142/95
[2018-09-26 02:00] VITALS: BP 149/86
[2018-09-26 05:43] LABS: BASOPHILS # (AUTO) 0.2 X10'3 (0-0.2); BASOPHILS % (AUTO) 1.1 % (0-1); EOSINOPHILS # (AUTO) 0.2 X10'3 (0-0.9); HEMOGLOBIN 8.1 g/dl (14.0-17.9); MEAN CORPUSCULAR HGB CONC 32.8 g/dL (33.0-36.5); MONOCYTES # (AUTO) 0.8 X10'3 (0-0.9)
[2018-09-26 05:46] LABS: EOSINOPHILS % (AUTO) 1.3 % (0-6); HEMATOCRIT 24.7 % (42.0-52.0); LYMPHOCYTES # (AUTO) 2.8 X10'3 (1.1-4.8); LYMPHOCYTES % (AUTO) 15.5 % (21-51); MEAN CORPUSCULAR HEMOGLOBIN 24.9 PG (27.0-31.0); MEAN CORPUSCULAR VOLUME 75.8 FL (78-98); MEAN PLATELET VOLUME 8.3 FL (7.4-10.4); MONOCYTES % (AUTO) 4.2 % (2-12); NEUTROPHILS # (AUTO) 14.2 X10'3 (1.8-7.7); NEUTROPHILS % (AUTO) 77.9 % (42-75); PLATELET COUNT 635 X10'3 (140-440); RED BLOOD COUNT 3.26 X10'6 (4.70-6.10); RED CELL DISTRIBUTION WIDTH 16.8 % (11.5-14.5); WHITE BLOOD COUNT 18.2 X10'3 (4.5-11.0)
[2018-09-26 06:00] VITALS: BP 147/85
[2018-09-26 06:13] LABS: ALANINE AMINOTRANSFERASE 16 U/L (12-78); ALBUMIN 1.2 G/DL (3.4-5.0); ALBUMIN/GLOBULIN RATIO 0.2 (1.1-1.5); ALKALINE PHOSPHATASE 178 IU/L (46-116); ANION GAP 9 (8-16); ASPARTATE AMINO TRANSFERASE 25 U/L (10-37); BILIRUBIN,TOTAL 0.4 MG/DL (0.1-1.0); BLOOD UREA NITROGEN 39 MG/DL (7-18); BUN/CREATININE RATIO 7.6 (5.4-32.0); CALCIUM 7.5 MG/DL (8.5-10.1); CHLORIDE 99 MMOL/L (99-107); CREATININE 5.14 MG/DL (0.60-1.10); GLUCOSE 85 MG/DL (70-104); MAGNESIUM 1.9 MG/DL (1.5-2.4); PHOSPHORUS 4.5 MG/DL (2.3-4.5); POTASSIUM 4.2 MMOL/L (3.5-5.1); SODIUM 132 MMOL/L (135-145); TOTAL CARBON DIOXIDE 24.2 MMOL/L (24-32); TOTAL PROTEIN 6.8 G/DL (6.4-8.2); eGFR 11 ML/MIN
--- NOTE | 2018-09-26 06:26 | NUR ---
Patient in room PCU 3023. I have received report from Rdaha ARAGON and had the opportunity to ask questions and assume patient care.
[2018-09-26 06:49] LABS: TOTAL CELLS COUNTED 100
[2018-09-26 06:50] LABS: ANISOCYTOSIS 1+; HYPERSEGMENTED NEUTROPHILS 2+; HYPOCHROMASIA 2+; MICROCYTOSIS 1+; PLATELET ESTIMATE INCREASED; POLYCHROMASIA 1+
[2018-09-26] MEDS: docusate sod 100mg capsule PO SCH ×2 (07:29→19:04)
[2018-09-26] MEDS: lactobacillus rhamnosus 10,000 MMU CELLS/CAPSULE PO SCH ×2 (07:29→19:04)
[2018-09-26] MEDS: nicotine 21mg patch - 24 hr TD SCH (07:30)
[2018-09-26] MEDS: CefTRIAXone/D5W-Rocephin 1gm 50 ML IV SCH (07:30)
[2018-09-26] MEDS ORDERED: normal saline 1000ml 250 ML IV PRN (08:00)
[2018-09-26] MEDS ORDERED: heparin 1,000unit/ml 10ml vial 10 ML IV ONE (08:00)
[2018-09-26] MEDS ORDERED: epoetin 20,000 units/ml inj IV ONE (08:00)
[2018-09-26] MEDS: heparin, porcine 5000 units/ml vial SQ SCH ×2 (08:00→19:05)
[2018-09-26] MEDS: LORazepam 2 mg/ml vial IV PRN ×2 (09:47→20:25)
[2018-09-26] MEDS: heparin 1,000 units/ml 10ml inj HE ONE ×4 (10:34→12:40)
[2018-09-26] MEDS ORDERED: vancomycin/NS 1 GM ADD-VANTAGE 250 ML IV ONE (11:00)
[2018-09-26 11:11] VITALS: BP 159/97
[2018-09-26] MEDS ORDERED: vancomycin/NS 1 GM ADD-VANTAGE 250 ML IV PRN (11:30)
--- NOTE | 2018-09-26 12:03 | NUR ---
Per MD Strickland, TDC on hold until white count comes down. Pt receiving HD at this time per RN. Nikita RN notified and aware of POC. Contact # given for MD Strickland for attending for any questions.
[2018-09-26 15:00] VITALS: BP 157/102
--- NOTE | 2018-09-26 15:49 | NUR ---
Reassessment: Pt continues on renal diet with fluctuating PO intake recently 50-75% likely not meeting nutrient needs to meet the demands of HD. Pt seen at bedside reports difficulty chewing d/t missing teeth. Pt agreeable to soft to chew, ground meats with gravy, and Nepro TID, d/w MD and dietary. RD discussed the importance of good nutrition while on HD, to eat well when he has the appetite and ONS for when he feels too tired to eat or cook. Informed pt that he will likely meet with a renal RD once pt starts going to routine outpatient HD treatments. LBM 09/24. Will continue to follow. Consult received re: new ESRD with poor self-care. Patient continues with intermittent confusion per physical assessment. PO intake of protein has improved to 100% PO of his meat this morning and 50% at lunch. Will continue to follow patient. Recommend: 1. continue renal diet 2. soft to chew, ground meats with gravy TID 3. Nepro TID 4. wt per rx 5. bowel care as needed Addendum: 09/26/18 at [address] Amended: Links added.
--- NOTE | 2018-09-26 18:05 | NUR ---
Patient in room PCU 3023. I have received report from Nikita ARAGON and had the opportunity to ask questions and assume patient care.
--- NOTE | 2018-09-26 18:15 | NUR ---
Problems reprioritized. Patient report given, questions answered & plan of care reviewed with Peri ARAGON.
[2018-09-26 18:18] VITALS: BP 149/92
[2018-09-26 22:00] VITALS: BP 165/78
[2018-09-27] VITALS (7 sets, daily range): BP systolic 111–155; BP diastolic 42–97
[2018-09-27] MEDS: VANCOMYCIN LEVEL IV SCH (02:59)
[2018-09-27 03:18] LABS: EOSINOPHILS # (AUTO) 0.1 X10'3 (0-0.9); LYMPHOCYTES # (AUTO) 2.4 X10'3 (1.1-4.8); MONOCYTES # (AUTO) 1.2 X10'3 (0-0.9); MONOCYTES % (AUTO) 7.3 % (2-12)
[2018-09-27 03:20] LABS: BASOPHILS # (AUTO) 0.2 X10'3 (0-0.2); BASOPHILS % (AUTO) 1.4 % (0-1); EOSINOPHILS % (AUTO) 0.4 % (0-6); HEMOGLOBIN 7.1 g/dl (14.0-17.9); LYMPHOCYTES % (AUTO) 14.1 % (21-51); MEAN CORPUSCULAR HEMOGLOBIN 24.9 PG (27.0-31.0); MEAN CORPUSCULAR HGB CONC 32.7 g/dL (33.0-36.5); MEAN CORPUSCULAR VOLUME 76.3 FL (78-98); MEAN PLATELET VOLUME 7.7 FL (7.4-10.4); NEUTROPHILS # (AUTO) 12.9 X10'3 (1.8-7.7); NEUTROPHILS % (AUTO) 76.8 % (42-75); PLATELET COUNT 704 X10'3 (140-440); RED BLOOD COUNT 2.87 X10'6 (4.70-6.10); RED CELL DISTRIBUTION WIDTH 16.9 % (11.5-14.5); WHITE BLOOD COUNT 16.8 X10'3 (4.5-11.0)
[2018-09-27 03:24] LABS: HEMATOCRIT 21.9 % (42.0-52.0)
[2018-09-27 03:39] LABS: ALANINE AMINOTRANSFERASE 14 U/L (12-78); ALBUMIN 1.2 G/DL (3.4-5.0); ALBUMIN/GLOBULIN RATIO 0.2 (1.1-1.5); ALKALINE PHOSPHATASE 164 IU/L (46-116); ANION GAP 5 (8-16); ASPARTATE AMINO TRANSFERASE 23 U/L (10-37); BILIRUBIN,TOTAL 0.3 MG/DL (0.1-1.0); BLOOD UREA NITROGEN 23 MG/DL (7-18); BUN/CREATININE RATIO 6.4 (5.4-32.0); CALCIUM 7.3 MG/DL (8.5-10.1); CHLORIDE 100 MMOL/L (99-107); CREATININE 3.61 MG/DL (0.60-1.10); GLUCOSE 96 MG/DL (70-104); MAGNESIUM 1.7 MG/DL (1.5-2.4); PHOSPHORUS 3.8 MG/DL (2.3-4.5); SODIUM 132 MMOL/L (135-145); TOTAL PROTEIN 6.7 G/DL (6.4-8.2); VANCOMYCIN,RANDOM 13.1 UG/ML; eGFR 17 ML/MIN
[2018-09-27 04:48] LABS: TOTAL CELLS COUNTED 100
[2018-09-27 04:49] LABS: ANISOCYTOSIS 1+; HYPOCHROMASIA 2+; LARGE PLATELETS FEW; MICROCYTOSIS 1+; PLATELET ESTIMATE INCREASED
--- NOTE | 2018-09-27 05:59 | NUR ---
Problems reprioritized. Patient report given, questions answered & plan of care reviewed with Nikita ARAGON.
--- NOTE | 2018-09-27 06:00 | NUR ---
Patient in room PCU 3023. I have received report from Peri ARAGON and had the opportunity to ask questions and assume patient care.
[2018-09-27] MEDS ORDERED: heparin 1,000unit/ml 10ml vial 10 ML IV ONE (08:00)
[2018-09-27] MEDS ORDERED: heparin 1,000 units/ml 10ml inj HE ONE ×2 (08:00)
[2018-09-27] MEDS: heparin, porcine 5000 units/ml vial SQ SCH ×2 (08:00→19:58)
[2018-09-27] MEDS ORDERED: epoetin 20,000 units/ml inj IV ONE (08:00)
[2018-09-27] MEDS ORDERED: normal saline 1000ml 250 ML IV PRN (08:00)
[2018-09-27] MEDS ORDERED: azithromycin/NS 500mg/250ml 250 ML IV ONE (09:30)
[2018-09-27] MEDS ORDERED: CefTRIAXone 2gm/D5W 50ml 50 ML IV ONE (09:30)
[2018-09-27] MEDS: docusate sod 100mg capsule PO SCH ×2 (09:33→19:58)
[2018-09-27] MEDS: lactobacillus rhamnosus 10,000 MMU CELLS/CAPSULE PO SCH ×2 (09:33→19:58)
[2018-09-27] MEDS: LORazepam 2 mg/ml vial IV PRN (09:34)
[2018-09-27] MEDS: nicotine 21mg patch - 24 hr TD SCH (09:34)
--- NOTE | 2018-09-27 18:15 | NUR ---
Problems reprioritized. Patient report given, questions answered & plan of care reviewed with Rossy ARAGON.
[2018-09-28] VITALS (10 sets, daily range): BP systolic 128–164; BP diastolic 72–93
[2018-09-28] MEDS: VANCOMYCIN LEVEL IV SCH (04:00)
[2018-09-28] MEDS: LORazepam 2 mg/ml vial IV PRN ×2 (04:09→20:45)
[2018-09-28 04:20] LABS: BASOPHILS # (AUTO) 0.3 X10'3 (0-0.2); EOSINOPHILS # (AUTO) 0.1 X10'3 (0-0.9); LYMPHOCYTES # (AUTO) 2.1 X10'3 (1.1-4.8); WHITE BLOOD COUNT 14.2 X10'3 (4.5-11.0)
[2018-09-28 04:21] LABS: BASOPHILS % (AUTO) 1.9 % (0-1); EOSINOPHILS % (AUTO) 0.6 % (0-6); LYMPHOCYTES % (AUTO) 14.8 % (21-51); MEAN CORPUSCULAR HEMOGLOBIN 24.9 PG (27.0-31.0); MEAN CORPUSCULAR HGB CONC 32.8 g/dL (33.0-36.5); MEAN CORPUSCULAR VOLUME 75.9 FL (78-98); MEAN PLATELET VOLUME 7.4 FL (7.4-10.4); MONOCYTES # (AUTO) 1.1 X10'3 (0-0.9); MONOCYTES % (AUTO) 7.8 % (2-12); NEUTROPHILS # (AUTO) 10.6 X10'3 (1.8-7.7); NEUTROPHILS % (AUTO) 74.9 % (42-75); PLATELET COUNT 780 X10'3 (140-440); RED BLOOD COUNT 2.75 X10'6 (4.70-6.10); RED CELL DISTRIBUTION WIDTH 16.5 % (11.5-14.5)
[2018-09-28 04:29] LABS: ALANINE AMINOTRANSFERASE 14 U/L (12-78); ALBUMIN 1.2 G/DL (3.4-5.0); ALBUMIN/GLOBULIN RATIO 0.2 (1.1-1.5); ALKALINE PHOSPHATASE 139 IU/L (46-116); ANION GAP 4 (8-16); ASPARTATE AMINO TRANSFERASE 20 U/L (10-37); BILIRUBIN,TOTAL 0.2 MG/DL (0.1-1.0); BLOOD UREA NITROGEN 21 MG/DL (7-18); CALCIUM 7.1 MG/DL (8.5-10.1); CHLORIDE 100 MMOL/L (99-107); CREATININE 2.99 MG/DL (0.60-1.10); GLUCOSE 105 MG/DL (70-104); MAGNESIUM 1.7 MG/DL (1.5-2.4); PHOSPHORUS 3.3 MG/DL (2.3-4.5); POTASSIUM 3.7 MMOL/L (3.5-5.1); SODIUM 133 MMOL/L (135-145); TOTAL CARBON DIOXIDE 29.2 MMOL/L (24-32); TOTAL PROTEIN 6.9 G/DL (6.4-8.2); VANCOMYCIN,RANDOM 8.2 UG/ML; eGFR 21 ML/MIN
[2018-09-28 04:31] LABS: HEMATOCRIT 20.9 % (42.0-52.0); HEMOGLOBIN 6.8 g/dl (14.0-17.9)
[2018-09-28 05:00] LABS: ANISOCYTOSIS 1+; HYPOCHROMASIA 2+; LARGE PLATELETS FEW; MICROCYTOSIS 1+; PLATELET ESTIMATE INCREASED; TOTAL CELLS COUNTED 100
--- NOTE | 2018-09-28 06:30 | NUR ---
Patient in room PCU 3023B. I have received report from Rossy ARAGON and had the opportunity to ask questions and assume patient care.
[2018-09-28] MEDS ORDERED: vancomycin/NS 1 GM ADD-VANTAGE 250 ML IV ONE (06:35)
[2018-09-28] MEDS: docusate sod 100mg capsule PO SCH ×2 (07:50→19:47)
[2018-09-28] MEDS: lactobacillus rhamnosus 10,000 MMU CELLS/CAPSULE PO SCH ×2 (07:51→19:47)
[2018-09-28] MEDS: nicotine 21mg patch - 24 hr TD SCH (07:51)
[2018-09-28] MEDS ORDERED: CefTRIAXone 2gm/D5W 50ml 50 ML IV SCH (08:00)
[2018-09-28] MEDS ORDERED: azithromycin/NS 500mg/250ml 250 ML IV SCH (08:00)
[2018-09-28] MEDS ORDERED: piperacillin/tazo 4.5gm/100ml 100 ML IV SCH ×2 (09:04→20:00)
[2018-09-28] MEDS: heparin, porcine 5000 units/ml vial SQ SCH ×2 (09:05→19:47)
[2018-09-28 10:21] LABS: % IRON SATURATION 10 % (11-46); IRON 10 UG/DL (53-167); TOTAL IRON BINDING CAPACITY 103 UG/DL (259-388)
[2018-09-28 10:35] LABS: FERRITIN 361 NG/ML (26-388)
[2018-09-28 10:51] LABS: CLARITY,URINE SLIGHTLY CLOUDY (Clear); COLOR,URINE STRAW (Yellow); GLUCOSE, URINE NEGATIVE (Neg); KETONES,URINE NEGATIVE (Neg); LEUKOCYTE ESTERASE ,URINE MODERATE (Neg); NITRITES, URINE NEGATIVE (Neg); OCCULT BLOOD,URINE LARGE (Neg); PROTEIN,URINE 100 mg/dl (Neg); UROBILINOGEN,URINE 0.2 E.U/dL (0.2-1.0)
[2018-09-28 10:52] LABS: UA COLLECTION TYPE CLN CATCH MIDSTREAM
[2018-09-28 10:57] LABS: RBC,URINE 20-50 /HPF (0-2); WBC,URINE 50-100 /HPF (0-4)
[2018-09-28 10:58] LABS: BACTERIA,URINE 1+ /HPF (Neg); MUCUS STRANDS NONE SEEN /LPF (Neg); SQUAMOUS EPITHELIAL CELL,UR FEW /LPF (FEW); WBC CLUMPS,URINE MODERATE /HPF (NEGATIVE)
--- NOTE | 2018-09-28 13:27 | NUR ---
Reassessment: Pt continues with HD with 3L off yesterday and pt receiving PRBCs d/t low Hgb per PA notes. Pt continues on renal diet with documented 25-50% PO intake however documented with 100% PO intake of dinner last night. Pt continues with Nepro TID, per RN pt likes them and is drinking them. Pt likely meeting nutrient needs with PO intake of meals and ONS. LBM 7/6. Will continue to follow. Recommend: 1. continue renal diet 2. soft to chew, ground meats with gravy TID 3. Nepro TID 4. wt per rx 5. bowel care as needed Addendum: 09/28/18 at [address] Amended: Links added.
--- NOTE | 2018-09-28 18:23 | NUR ---
Problems reprioritized. Patient report given, questions answered & plan of care reviewed with Rossy ARAGON.
[2018-09-29 02:00] VITALS: BP 136/77
[2018-09-29] MEDS: VANCOMYCIN LEVEL IV SCH (04:00)
[2018-09-29 04:37] LABS: BASOPHILS # (AUTO) 0.4 X10'3 (0-0.2); EOSINOPHILS % (AUTO) 1.2 % (0-6); HEMOGLOBIN 7.5 g/dl (14.0-17.9); NEUTROPHILS # (AUTO) 8.8 X10'3 (1.8-7.7)
[2018-09-29 04:39] LABS: EOSINOPHILS # (AUTO) 0.2 X10'3 (0-0.9); HEMATOCRIT 23.4 % (42.0-52.0); LYMPHOCYTES # (AUTO) 2.1 X10'3 (1.1-4.8); LYMPHOCYTES % (AUTO) 16.5 % (21-51); MEAN CORPUSCULAR HEMOGLOBIN 24.8 PG (27.0-31.0); MEAN CORPUSCULAR HGB CONC 31.9 g/dL (33.0-36.5); MEAN CORPUSCULAR VOLUME 77.5 FL (78-98); MEAN PLATELET VOLUME 7.3 FL (7.4-10.4); MONOCYTES % (AUTO) 8.2 % (2-12); NEUTROPHILS % (AUTO) 71.1 % (42-75); PLATELET COUNT 822 X10'3 (140-440); RED BLOOD COUNT 3.02 X10'6 (4.70-6.10); WHITE BLOOD COUNT 12.4 X10'3 (4.5-11.0)
[2018-09-29 04:46] LABS: ALANINE AMINOTRANSFERASE 15 U/L (12-78); ALBUMIN 1.2 G/DL (3.4-5.0); ALBUMIN/GLOBULIN RATIO 0.2 (1.1-1.5); ALKALINE PHOSPHATASE 115 IU/L (46-116); ANION GAP 5 (8-16); ASPARTATE AMINO TRANSFERASE 21 U/L (10-37); BILIRUBIN,TOTAL 0.4 MG/DL (0.1-1.0); BLOOD UREA NITROGEN 30 MG/DL (7-18); BUN/CREATININE RATIO 8.2 (5.4-32.0); CALCIUM 7.3 MG/DL (8.5-10.1); CHLORIDE 101 MMOL/L (99-107); CREATININE 3.64 MG/DL (0.60-1.10); GLUCOSE 99 MG/DL (70-104); MAGNESIUM 1.6 MG/DL (1.5-2.4); PHOSPHORUS 4.9 MG/DL (2.3-4.5); POTASSIUM 3.5 MMOL/L (3.5-5.1); SODIUM 135 MMOL/L (135-145); TOTAL CARBON DIOXIDE 28.9 MMOL/L (24-32); TOTAL PROTEIN 6.9 G/DL (6.4-8.2); VANCOMYCIN,RANDOM 16.6 UG/ML; eGFR 17 ML/MIN
[2018-09-29 05:08] LABS: ANISOCYTOSIS 1+; MICROCYTOSIS 1+; PLATELET ESTIMATE INCREASED; TOTAL CELLS COUNTED 100
[2018-09-29 05:09] LABS: HYPOCHROMASIA 2+; LARGE PLATELETS FEW; POLYCHROMASIA FEW
[2018-09-29 06:00] VITALS: BP 138/84
--- NOTE | 2018-09-29 06:53 | NUR ---
Patient in room PCU 3023. I have received report from Rossy and had the opportunity to ask questions and assume patient care.
[2018-09-29] MEDS: nicotine 21mg patch - 24 hr TD SCH (08:00)
[2018-09-29] MEDS: heparin, porcine 5000 units/ml vial SQ SCH ×2 (08:00→20:45)
[2018-09-29] MEDS: lactobacillus rhamnosus 10,000 MMU CELLS/CAPSULE PO SCH ×2 (08:11→20:43)
[2018-09-29] MEDS: docusate sod 100mg capsule PO SCH ×2 (08:11→20:43)
[2018-09-29 11:00] VITALS: BP 138/80
[2018-09-29 15:00] VITALS: BP 161/92
[2018-09-29] MEDS ORDERED: LIDOcaine 1%/PF 5ML 10 MG/ML VIAL ONE (15:15)
[2018-09-29] MEDS ORDERED: heparin 1,000unit/ml 10ml vial 10 ML ONE (15:48)
[2018-09-29] MEDS ORDERED: fentaNYL/PF 50MCG/1 ML 2ML syringe ONE (15:48)
[2018-09-29 15:58] LABS: TOTAL PROTEIN,URINE RANDOM 172.6 MG/DL
[2018-09-29 16:00] LABS: CLARITY,URINE SLIGHTLY CLOUDY (Clear); COLOR,URINE YELLOW (Yellow); GLUCOSE, URINE NEGATIVE (Neg); KETONES,URINE NEGATIVE (Neg); LEUKOCYTE ESTERASE ,URINE SMALL (Neg); NITRITES, URINE NEGATIVE (Neg); OCCULT BLOOD,URINE LARGE (Neg); PH,URINE 7.5 (4.8-8.0); PROTEIN,URINE 100 mg/dl (Neg); UROBILINOGEN,URINE 0.2 E.U/dL (0.2-1.0)
[2018-09-29 16:13] LABS: UA COLLECTION TYPE CLN CATCH MIDSTREAM
[2018-09-29 16:14] LABS: RBC,URINE 20-50 /HPF (0-2); WBC,URINE 20-30 /HPF (0-4)
[2018-09-29 16:15] LABS: BACTERIA,URINE FEW /HPF (Neg); SQUAMOUS EPITHELIAL CELL,UR FEW /LPF (FEW)
[2018-09-29 16:16] LABS: WBC CLUMPS,URINE FEW /HPF (NEGATIVE)
[2018-09-29 16:31] VITALS: BP 158/93
[2018-09-29] MEDS: HYDROcodone/acetaminophen 5mg/325mg tablet PO PRN (17:10)
[2018-09-29 17:36] LABS: UA EOSINOPHILS NO EOS /HPF
--- NOTE | 2018-09-29 18:25 | NUR ---
Patient in room PCU 3023. I have received report from Ammon RN and Jessica ARAGON and had the opportunity to ask questions and assume patient care.
--- NOTE | 2018-09-29 18:32 | NUR ---
Problems reprioritized. Patient report given, questions answered & plan of care reviewed with MAHESH DICKENS.
--- NOTE | 2018-09-29 18:32 | NUR ---
DEBATE DIRECTORpattern chain maker supervisor: I have reviewed and agree with all interventions, assessments performed and documented by MAHESH BURLESON.
--- NOTE | 2018-09-29 20:30 | NUR ---
Medication clarification: Tre Anguiano NP RE: heparin administration this evening after TDC placement and Jugular Ned removal. Platelets are 822. Ordered to proceed with administration. Will continue to monitor.
[2018-09-29 22:37] LABS: OCCULT BLOOD STOOL NEGATIVE (Neg)
[2018-09-29 23:00] VITALS: BP 140/84
[2018-09-30 03:00] VITALS: BP 152/98
[2018-09-30 06:00] VITALS: BP 169/90
--- NOTE | 2018-09-30 06:17 | NUR ---
Problems reprioritized. Patient report given, questions answered & plan of care reviewed with Ammon RN.
[2018-09-30 06:30] LABS: BASOPHILS # (AUTO) 0.3 X10'3 (0-0.2); EOSINOPHILS # (AUTO) 0.1 X10'3 (0-0.9); EOSINOPHILS % (AUTO) 1.1 % (0-6); HEMOGLOBIN 7.6 g/dl (14.0-17.9); MEAN CORPUSCULAR HEMOGLOBIN 25.6 PG (27.0-31.0); RED BLOOD COUNT 2.95 X10'6 (4.70-6.10)
[2018-09-30 06:34] LABS: BASOPHILS % (AUTO) 2.6 % (0-1); HEMATOCRIT 22.8 % (42.0-52.0); LYMPHOCYTES # (AUTO) 2.2 X10'3 (1.1-4.8); LYMPHOCYTES % (AUTO) 20.9 % (21-51); MEAN CORPUSCULAR HGB CONC 33.1 g/dL (33.0-36.5); MEAN CORPUSCULAR VOLUME 77.3 FL (78-98); MEAN PLATELET VOLUME 7.2 FL (7.4-10.4); MONOCYTES # (AUTO) 0.8 X10'3 (0-0.9); MONOCYTES % (AUTO) 7.4 % (2-12); NEUTROPHILS # (AUTO) 7.3 X10'3 (1.8-7.7); PLATELET COUNT 854 X10'3 (140-440); RED CELL DISTRIBUTION WIDTH 17.1 % (11.5-14.5); WHITE BLOOD COUNT 10.8 X10'3 (4.5-11.0)
--- NOTE | 2018-09-30 06:45 | NUR ---
Patient in room PCU 3023. I have received report from MAHESH DICKENS and had the opportunity to ask questions and assume patient care.
[2018-09-30 06:52] LABS: ALANINE AMINOTRANSFERASE 16 U/L (12-78); ALBUMIN 1.3 G/DL (3.4-5.0); ALBUMIN/GLOBULIN RATIO 0.2 (1.1-1.5); ALKALINE PHOSPHATASE 105 IU/L (46-116); ANION GAP 10 (8-16); ASPARTATE AMINO TRANSFERASE 23 U/L (10-37); BILIRUBIN,TOTAL 0.3 MG/DL (0.1-1.0); BLOOD UREA NITROGEN 35 MG/DL (7-18); BUN/CREATININE RATIO 10.1 (5.4-32.0); CALCIUM 7.2 MG/DL (8.5-10.1); CHLORIDE 102 MMOL/L (99-107); CREATININE 3.48 MG/DL (0.60-1.10); GLUCOSE 90 MG/DL (70-104); MAGNESIUM 1.5 MG/DL (1.5-2.4); PHOSPHORUS 5.7 MG/DL (2.3-4.5); POTASSIUM 3.2 MMOL/L (3.5-5.1); SODIUM 138 MMOL/L (135-145); TOTAL CARBON DIOXIDE 26.2 MMOL/L (24-32); TOTAL PROTEIN 7.3 G/DL (6.4-8.2); eGFR 18 ML/MIN
[2018-09-30 07:17] LABS: ANISOCYTOSIS 1+; MICROCYTOSIS 1+; PLATELET ESTIMATE INCREASED
[2018-09-30 07:18] LABS: HYPOCHROMASIA 2+
[2018-09-30] MEDS: lactobacillus rhamnosus 10,000 MMU CELLS/CAPSULE PO SCH ×2 (08:21→21:19)
[2018-09-30] MEDS: docusate sod 100mg capsule PO SCH ×2 (08:21→20:00)
[2018-09-30] MEDS: heparin, porcine 5000 units/ml vial SQ SCH ×2 (08:22→21:18)
[2018-09-30] MEDS: nicotine 21mg patch - 24 hr TD SCH (08:23)
[2018-09-30] MEDS: HYDROcodone/acetaminophen 5mg/325mg tablet PO PRN (08:30)
[2018-09-30 11:00] VITALS: BP 127/83
[2018-09-30 15:00] VITALS: BP 158/90
[2018-09-30 18:00] VITALS: BP 179/107
--- NOTE | 2018-09-30 18:26 | NUR ---
Problems reprioritized. Patient report given, questions answered & plan of care reviewed with MAHESH DICKENS.
--- NOTE | 2018-09-30 18:45 | NUR ---
Patient in room PCU 3023. I have received report from Ammon ARAGON and had the opportunity to ask questions and assume patient care.
--- NOTE | 2018-09-30 19:06 | NUR ---
Notification: Called Shelbie Anguiano NP RE: BP 179/107 repeat BP 5 minutes later 182/110. New orders received Hydralazine 10mg IV Q6 hr PRN SBP> 180 and DBP >95 Will continue to monitor
[2018-09-30] MEDS ORDERED: hydrALAZINE 20mg/ml inj. IV PRN (19:10)
[2018-09-30 22:00] VITALS: BP 174/96
[2018-10-01 03:00] VITALS: BP 169/89
--- NOTE | 2018-10-01 06:05 | NUR ---
Patient in room PCU 3023. I have received report from Emerald ARAGON and had the opportunity to ask questions and assume patient care.
--- NOTE | 2018-10-01 06:18 | NUR ---
Problems reprioritized. Patient report given, questions answered & plan of care reviewed with Néstor ARAGON.
[2018-10-01 06:44] VITALS: BP 164/97
[2018-10-01 07:22] LABS: BASOPHILS # (AUTO) 0.3 X10'3 (0-0.2); EOSINOPHILS # (AUTO) 0.1 X10'3 (0-0.9); LYMPHOCYTES # (AUTO) 1.6 X10'3 (1.1-4.8)
[2018-10-01 07:24] LABS: BASOPHILS % (AUTO) 3.2 % (0-1); EOSINOPHILS % (AUTO) 0.8 % (0-6); LYMPHOCYTES % (AUTO) 18.2 % (21-51); MEAN CORPUSCULAR HGB CONC 33.5 g/dL (33.0-36.5); MEAN CORPUSCULAR VOLUME 77.4 FL (78-98); MONOCYTES # (AUTO) 0.8 X10'3 (0-0.9); MONOCYTES % (AUTO) 9.3 % (2-12); NEUTROPHILS # (AUTO) 5.9 X10'3 (1.8-7.7); NEUTROPHILS % (AUTO) 68.5 % (42-75); PLATELET COUNT 904 X10'3 (140-440); RED CELL DISTRIBUTION WIDTH 17.4 % (11.5-14.5); WHITE BLOOD COUNT 8.6 X10'3 (4.5-11.0)
[2018-10-01] MEDS: lactobacillus rhamnosus 10,000 MMU CELLS/CAPSULE PO SCH (07:24)
[2018-10-01] MEDS: docusate sod 100mg capsule PO SCH (07:24)
[2018-10-01] MEDS: nicotine 21mg patch - 24 hr TD SCH (07:24)
[2018-10-01] MEDS: heparin, porcine 5000 units/ml vial SQ SCH (07:25)
[2018-10-01 07:33] LABS: ALANINE AMINOTRANSFERASE 17 U/L (12-78); ALBUMIN 1.5 G/DL (3.4-5.0); ALBUMIN/GLOBULIN RATIO 0.2 (1.1-1.5); ALKALINE PHOSPHATASE 103 IU/L (46-116); ANION GAP 10 (8-16); ASPARTATE AMINO TRANSFERASE 21 U/L (10-37); BILIRUBIN,TOTAL 0.4 MG/DL (0.1-1.0); BLOOD UREA NITROGEN 33 MG/DL (7-18); BUN/CREATININE RATIO 11.4 (5.4-32.0); CALCIUM 7.6 MG/DL (8.5-10.1); CHLORIDE 103 MMOL/L (99-107); CREATININE 2.89 MG/DL (0.60-1.10); GLUCOSE 94 MG/DL (70-104); HEMATOCRIT 21.7 % (42.0-52.0); HEMOGLOBIN 7.3 g/dl (14.0-17.9); MAGNESIUM 1.5 MG/DL (1.5-2.4); SODIUM 140 MMOL/L (135-145); TOTAL CARBON DIOXIDE 27.1 MMOL/L (24-32); TOTAL PROTEIN 7.6 G/DL (6.4-8.2); eGFR 22 ML/MIN
[2018-10-01 07:40] LABS: POTASSIUM 2.7 MMOL/L (3.5-5.1)
[2018-10-01 08:56] LABS: ANISOCYTOSIS 1+; MICROCYTOSIS 1+; PLATELET ESTIMATE INCREASED; TOTAL CELLS COUNTED 100
[2018-10-01 08:57] LABS: HYPOCHROMASIA 2+; POLYCHROMASIA FEW; SCHISTOCYTES FEW
[2018-10-01] MEDS ORDERED: potassium Cl 20 mEq SR tablet PO PRN ×2 (09:00)
[2018-10-01] MEDS ORDERED: potassium CL 10mEq/100ml bag 100 ML IV PRN (09:00)
[2018-10-01] MEDS ORDERED: sodium ferric gluc complex inj 125 MG in normal saline 100ml IV soln 100 ML IV SCH (09:45)
[2018-10-01 11:00] VITALS: BP 167/88
--- NOTE | 2018-10-01 11:21 | NUR ---
Reassessment: PO intake fluctuates now with overall average 50-75% of meals and receiving ONS TID. Per MD notes pt with recovering renal function with increasing urine output. LBM 09/29, pt with routine and PRN bowel care. Will continue to follow. Recommend: 1. continue renal diet 2. soft to chew, ground meats with gravy TID 3. Nepro TID 4. wt per rx 5. bowel care as needed Addendum: 10/01/18 at [address] Amended: Links added.
[2018-10-01] MEDS ORDERED: NICO-687 TD (13:48)
[2018-10-01] MEDS ORDERED: IRON-32 PO (13:58)
--- NOTE | 2018-10-01 15:33 | NUR ---
Patient discharged. Patient discharged home via private vehicle accompanied by patient's ex-. IV catheter removed prior to discharge, catheter intact. Tele leads removed from patient prior to discharge. Tele box returned to radio television announcer. New prescriptions called into patient's preferred pharmacy [facility] in [place], [place]. Discharge instructions provided to patient and discussed with patient via RN. Patient ensured he had all belongings upon discharge. All questions and concerns addressed with RN prior to discharge. Patient escorted out of facility via wheelchair accompanied by RN.
== END 2018-10-01 15:19 | disposition home or self-care (01) | DRG 871 ==
LOC: ER 05:50 → CICU 2S 12:20 → CMPBEDREQ 18:59 → PCU 3S 09-23 17:32
PROVIDERS: ATTEND Internal Medicine Critical Care Medicine
PROC: CT131ZZ Planar Nuclear Medicine Imaging of Kidneys, Ureters and Bladder using Technetium 99m (Tc-99m) (ICD-10-PCS; 2018-09-18)
PROC: 5A1D70Z Performance of Urinary Filtration, Intermittent, Less than 6 Hours Per Day (ICD-10-PCS; 2018-09-19)
PROC: 02HV33Z Insertion of Infusion Device into Superior Vena Cava, Percutaneous Approach (ICD-10-PCS; 2018-09-19)
PROC: B5181ZA Fluoroscopy of Superior Vena Cava using Low Osmolar Contrast, Guidance (ICD-10-PCS; 2018-09-19)
PROC: B548ZZA Ultrasonography of Superior Vena Cava, Guidance (ICD-10-PCS; 2018-09-19)
PROC: 5A1D70Z Performance of Urinary Filtration, Intermittent, Less than 6 Hours Per Day (ICD-10-PCS; 2018-09-20)
PROC: 5A1D70Z Performance of Urinary Filtration, Intermittent, Less than 6 Hours Per Day (ICD-10-PCS; 2018-09-22)
PROC: 5A1D70Z Performance of Urinary Filtration, Intermittent, Less than 6 Hours Per Day (ICD-10-PCS; 2018-09-24)
PROC: 5A1D70Z Performance of Urinary Filtration, Intermittent, Less than 6 Hours Per Day (ICD-10-PCS; principal; 2018-09-26)
PROC: 30233N1 Transfusion of Nonautologous Red Blood Cells into Peripheral Vein, Percutaneous Approach (ICD-10-PCS; 2018-09-28)
PROC: 0JH63XZ Insertion of Tunneled Vascular Access Device into Chest Subcutaneous Tissue and Fascia, Percutaneous Approach (ICD-10-PCS; 2018-09-29)
PROC: 02HV33Z Insertion of Infusion Device into Superior Vena Cava, Percutaneous Approach (ICD-10-PCS; 2018-09-29)
PROC: B5181ZA Fluoroscopy of Superior Vena Cava using Low Osmolar Contrast, Guidance (ICD-10-PCS; 2018-09-29)
PROC: B548ZZA Ultrasonography of Superior Vena Cava, Guidance (ICD-10-PCS; 2018-09-29)
DX: A41.9 Sepsis, unspecified organism (principal); N18.6 End stage renal disease; J18.1 Lobar pneumonia, unspecified organism; N17.9 Acute kidney failure, unspecified; M62.82 Rhabdomyolysis; E87.1 Hypo-osmolality and hyponatremia; D50.9 Iron deficiency anemia, unspecified; E86.0 Dehydration; F15.90 Other stimulant use, unspecified, uncomplicated; M19.90 Unspecified osteoarthritis, unspecified site; F12.90 Cannabis use, unspecified, uncomplicated; R79.89 Other specified abnormal findings of blood chemistry; R19.7 Diarrhea, unspecified; Z99.2 Dependence on renal dialysis; Z79.899 Other long term (current) drug therapy
CPT/HCPCS: 36415; 36556; 36558; 36569; 71045; 71250; 74176; 76775; 76937; 77001; 78707; 80053; 80202; 81001; 82272; 82550; 82570; 82728; 82810; 82948; 83540; 83550; 83605; 83690; 83735; 83874; 83880; 84100; 84132; 84145; 84156; 84300; 85025; 86706; 86885; 86900; 86901; 86920; 87040; 87070; 87077; 87081; 87088; 87186; 87207; 87340; 93005; 93971; 93975; 94640; 94668; 94760; 96361; 96365; 96366; 96375; 97110; 97116; 97161; 97530; 99291; A9270; A9562; C1750; C1751; C1894; G0257; G0378; J0360; J0456; J0696; J1644; J2060; J2150; J2250; J2370; J2543; J2916; J2930; J3010; J3370; J7042; J7050; P9016; Q4081

== ENCOUNTER 2024-02-07 11:48 | Inpatient (IN) | payer MEDICARE, MEDICAID ==
[~2024-02-07] VITALS: Ht 175.3 cm; Wt 66.0 kg
[~2024-02-07 11:48] MED LIST: IRON-32 PO; NICO-687 TD
[2024-02-07 12:44] LABS: BASOPHILS # (AUTO) 0.2 X10'3 (0-0.2); EOSINOPHILS # (AUTO) 0.2 X10'3 (0-0.9); EOSINOPHILS % (AUTO) 1.3 % (0-6); LYMPHOCYTES # (AUTO) 3.4 X10'3 (1.1-4.8); LYMPHOCYTES % (AUTO) 25.6 % (21-51); NEUTROPHILS # (AUTO) 8.8 X10'3 (1.8-7.7); WHITE BLOOD COUNT 13.4 X10'3 (4.5-11.0)
[2024-02-07 12:45] LABS: BASOPHILS % (AUTO) 1.5 % (0-1); HEMATOCRIT 37.2 % (42.0-52.0); MEAN CORPUSCULAR HEMOGLOBIN 24.1 PG (27.0-31.0); MEAN CORPUSCULAR HGB CONC 32.3 g/dL (33.0-36.5); MEAN CORPUSCULAR VOLUME 74.5 FL (78-98); MEAN PLATELET VOLUME 6.9 FL (7.4-10.4); MONOCYTES # (AUTO) 0.8 X10'3 (0-0.9); MONOCYTES % (AUTO) 5.6 % (2-12); PLATELET COUNT 862 X10'3 (140-440)
[2024-02-07 12:59] LABS: ALANINE AMINOTRANSFERASE 11 U/L (12-78); ALKALINE PHOSPHATASE 80 IU/L (46-116); ANION GAP 7 (8-16); ASPARTATE AMINO TRANSFERASE 16 U/L (10-37); BILIRUBIN,TOTAL 0.2 MG/DL (0.1-1.0); BLOOD UREA NITROGEN 23 MG/DL (7-18); BUN/CREATININE RATIO 15.8 (10.0-20.0); CALCIUM 8.1 MG/DL (8.5-10.1); CHLORIDE 106 MMOL/L (99-107); CREATININE 1.46 MG/DL (0.60-1.10); GLUCOSE 109 MG/DL (70-104); POTASSIUM 4.2 MMOL/L (3.5-5.1); SODIUM 137 MMOL/L (135-145); TOTAL CARBON DIOXIDE 23.6 MMOL/L (24-32); TOTAL PROTEIN 6.7 G/DL (6.4-8.2); eCRCL 45 ML/MIN; eGFR 48 ML/MIN
[2024-02-07 13:10] LABS: PRO BRAIN NATRIURETIC PEPTIDE 722 PG/ML (0-125)
[2024-02-07 13:13] LABS: TOTAL CELLS COUNTED 100
[2024-02-07 13:14] LABS: ANISOCYTOSIS 2+; HYPOCHROMASIA 2+; MICROCYTOSIS 1+; PLATELET ESTIMATE INCREASED
[2024-02-07 13:28] LABS: ALBUMIN < 0.6 G/DL (3.4-5.0); ALBUMIN/GLOBULIN RATIO 0.1 (1.1-1.5)
[2024-02-07] MEDS ORDERED: potassium Cl 40MEQ/1/2NS 520ml 520 ML IV PRN (15:50)
[2024-02-07] MEDS ORDERED: acetaminophen 325mg tablet PO PRN (15:50)
[2024-02-07] MEDS ORDERED: magnesium sulf-water 2g/50mL 50 ML IV PRN (15:50)
[2024-02-07] MEDS ORDERED: magnesium hydroxide 30ml (MOM) UD suspension PO PRN (15:50)
[2024-02-07] MEDS ORDERED: mag hydrox/Alum hydrox/simeth 30ml oral suspension PO PRN (15:50)
[2024-02-07] MEDS ORDERED: magnesium Cl slow-release 64mg tablet PO PRN (15:50)
[2024-02-07] MEDS ORDERED: potassium Cl 20 mEq SR tablet PO PRN ×2 (15:50)
[2024-02-07] MEDS ORDERED: magnesium sulf-water 4G/100mL 100 ML IV PRN (15:50)
[2024-02-07] MEDS ORDERED: ondansetron/PF 4mg/2ml inj IV PRN (15:50)
[2024-02-07] MEDS ORDERED: ipratropium/albuterol 3ml nebule NEB PRN (16:00)
[2024-02-07 16:55] LABS: MAGNESIUM 1.9 MG/DL (1.5-2.4); PHOSPHORUS 3.8 MG/DL (2.3-4.5)
[2024-02-07] MEDS: furosemide 10 MG/1 ML 10ml inj IV ONE (17:01)
[2024-02-07 17:02] LABS: HEMOGLOBIN A1C 6.1 % (4.5-6.2)
[2024-02-07] MEDS: methylPREDNISolone sod succ 125mg/2ml vial IV ONE (17:08)
[2024-02-07] MEDS: CefTRIAXone/D5W-Rocephin 1gm 50 ML IV ONE (17:10)
[2024-02-07] MEDS: azithromycin/NS 500mg/250ml 250 ML IV SCH (17:20)
[2024-02-07] MEDS: azithromycin/NS 500mg/250ml 250 ML IV ONE (17:21)
[2024-02-07] MEDS: nicotine 14mg patch - 24hr TD ONE (17:22)
[2024-02-07 17:53] VITALS: PULSE 94; RESP 18; O2SAT 92
[2024-02-07] MEDS: heparin, porcine 5000 units/ml vial SQ SCH (19:56)
[2024-02-07] MEDS: furosemide 10 MG/1 ML 10ml inj IV SCH (20:00)
[2024-02-07 21:15] VITALS: BP 125/80; PULSE 109; RESP 17; TEMP 98; O2SAT 91
[2024-02-07] MEDS: K and/or MAG REPLACEMENT MC SCH (21:32)
[2024-02-07 22:30] VITALS: RESP 17; O2SAT 93
[2024-02-07 22:31] VITALS: PULSE 102; RESP 18; O2SAT 95
[2024-02-08] VITALS (7 sets, daily range): BP systolic 105–129; BP diastolic 51–79; PULSE 74–95; RESP 17–18; TEMP 97.1–98.6; O2SAT 91–96
[2024-02-08] MEDS: acetaminophen 325mg tablet PO PRN (05:28)
[2024-02-08 07:17] LABS: EOSINOPHILS % (AUTO) 0 % (0-6); HEMOGLOBIN 10.6 g/dl (14.0-17.9); MEAN PLATELET VOLUME 7.2 FL (7.4-10.4); MONOCYTES # (AUTO) 0.2 X10'3 (0-0.9); NEUTROPHILS # (AUTO) 5.9 X10'3 (1.8-7.7); NEUTROPHILS % (AUTO) 73.6 % (42-75)
[2024-02-08 07:20] LABS: BASOPHILS % (AUTO) 0.4 % (0-1); HEMATOCRIT 32.4 % (42.0-52.0); LYMPHOCYTES # (AUTO) 1.9 X10'3 (1.1-4.8); LYMPHOCYTES % (AUTO) 23.1 % (21-51); MEAN CORPUSCULAR HEMOGLOBIN 24.9 PG (27.0-31.0); MEAN CORPUSCULAR HGB CONC 32.8 g/dL (33.0-36.5); MEAN CORPUSCULAR VOLUME 75.9 FL (78-98); MONOCYTES % (AUTO) 2.9 % (2-12); PLATELET COUNT 719 X10'3 (140-440); RED BLOOD COUNT 4.27 X10'6 (4.70-6.10)
[2024-02-08 07:34] LABS: ANION GAP 7 (8-16); ASPARTATE AMINO TRANSFERASE 18 U/L (10-37); BILIRUBIN,TOTAL 0.1 MG/DL (0.1-1.0); BLOOD UREA NITROGEN 41 MG/DL (7-18); BUN/CREATININE RATIO 24.7 (10.0-20.0); CALCIUM 7.6 MG/DL (8.5-10.1); CHLORIDE 103 MMOL/L (99-107); CREATININE 1.66 MG/DL (0.60-1.10); GLUCOSE 173 MG/DL (70-104); POTASSIUM 4.3 MMOL/L (3.5-5.1); SODIUM 133 MMOL/L (135-145); TOTAL PROTEIN 6.1 G/DL (6.4-8.2); eCRCL 39 ML/MIN; eGFR 41 ML/MIN
[2024-02-08 07:35] LABS: ALANINE AMINOTRANSFERASE 7 U/L (12-78); ALKALINE PHOSPHATASE 69 IU/L (46-116); HDL CHOLESTEROL 61 MG/DL (35-60); LDL CHOLESTEROL 217 MG/DL (50-100); TRIGLYCERIDES 135 MG/DL (20-135)
[2024-02-08 07:46] LABS: ALBUMIN < 0.6 G/DL (3.4-5.0); ALBUMIN/GLOBULIN RATIO 0.1 (1.1-1.5)
[2024-02-08] MEDS: methylPREDNISolone sod succ 125mg/2ml vial IV SCH (07:55)
[2024-02-08] MEDS: CefTRIAXone/D5W-Rocephin 1gm 50 ML IV SCH (07:56)
[2024-02-08 08:27] LABS: CHOL/HDL RATIO 5.2 (0.00-4.99); CHOLESTEROL 319 MG/DL (0-200)
[2024-02-08] MEDS: atorvastatin 20mg tablet PO SCH (09:45)
[2024-02-08 11:03] LABS: BILIRUBIN,URINE NEGATIVE (Neg); CLARITY,URINE CLEAR (Clear); COLOR,URINE YELLOW (Yellow); GLUCOSE, URINE 250 mg/dl (Neg); KETONES,URINE NEGATIVE (Neg); LEUKOCYTE ESTERASE ,URINE NEGATIVE (Neg); NITRITES, URINE NEGATIVE (Neg); OCCULT BLOOD,URINE MODERATE (Neg); PROTEIN,URINE >=300 mg/dl (Neg); UROBILINOGEN,URINE 0.2 E.U/dL (0.2-1.0)
[2024-02-08 11:08] LABS: UA COLLECTION TYPE NON-SPECIFIED
[2024-02-08 11:09] LABS: WBC,URINE 0-4 /HPF (0-4)
[2024-02-08 11:10] LABS: BACTERIA,URINE FEW /HPF (Neg); MUCUS STRANDS FEW /LPF (Neg); SQUAMOUS EPITHELIAL CELL,UR FEW /LPF (FEW)
[2024-02-08 11:19] LABS: URINE AMPHETAMINE SCREEN POSITIVE (Neg); URINE BARBITUATE SCREEN NEGATIVE (Neg); URINE BENZODIAZEPINES SCREEN NEGATIVE (Neg); URINE CANNABINOID SCREEN POSITIVE (Neg); URINE COCAINE SCREEN NEGATIVE (Neg); URINE METHADONE SCREEN NEGATIVE (Neg); URINE OPIATE SCREEN NEGATIVE (Neg); URINE PHENCYCLIDINE SCREEN NEGATIVE (Neg)
[2024-02-08 11:29] LABS: OSMOLALITY UA 633 MOSM/K (50-1400)
[2024-02-08 11:57] LABS: SODIUM,URINE RANDOM < 15 MEQ/L; TOTAL PROTEIN,URINE RANDOM 2714.6 MG/DL
[2024-02-08 12:01] LABS: CREATININE,URINE RANDOM 212.3 MG/DL
[2024-02-08 12:16] LABS: APTT 30 SECONDS (22-32); PROTHROMBIN TIME 10.6 SECONDS (9.0-12.0)
[2024-02-08] MEDS: furosemide 20 MG/2 ML vial IV SCH (14:52)
[2024-02-08] MEDS: albumin (human) 25% 100 ML IV solution IV SCH (16:47)
[2024-02-09 06:00] VITALS: BP 132/72; PULSE 79; RESP 16; TEMP 98.3; O2SAT 93
[2024-02-09 06:39] LABS: BASOPHILS % (AUTO) 0.1 % (0-1); EOSINOPHILS % (AUTO) 0 % (0-6); HEMATOCRIT 26.9 % (42.0-52.0); HEMOGLOBIN 8.7 g/dl (14.0-17.9); LYMPHOCYTES # (AUTO) 2.2 X10'3 (1.1-4.8); LYMPHOCYTES % (AUTO) 15.4 % (21-51); MEAN CORPUSCULAR HEMOGLOBIN 24.6 PG (27.0-31.0); MEAN CORPUSCULAR HGB CONC 32.2 g/dL (33.0-36.5); MEAN CORPUSCULAR VOLUME 76.4 FL (78-98); MEAN PLATELET VOLUME 6.8 FL (7.4-10.4); MONOCYTES # (AUTO) 0.6 X10'3 (0-0.9); MONOCYTES % (AUTO) 3.8 % (2-12); NEUTROPHILS # (AUTO) 11.7 X10'3 (1.8-7.7); NEUTROPHILS % (AUTO) 80.7 % (42-75); PLATELET COUNT 527 X10'3 (140-440); RED BLOOD COUNT 3.52 X10'6 (4.70-6.10); RED CELL DISTRIBUTION WIDTH 19.1 % (11.5-14.5); WHITE BLOOD COUNT 14.6 X10'3 (4.5-11.0)
[2024-02-09 06:51] LABS: ALANINE AMINOTRANSFERASE 9 U/L (12-78); ALBUMIN 1.6 G/DL (3.4-5.0); ALBUMIN/GLOBULIN RATIO 0.4 (1.1-1.5); ALKALINE PHOSPHATASE 40 IU/L (46-116); ANION GAP 7 (8-16); ASPARTATE AMINO TRANSFERASE 14 U/L (10-37); BILIRUBIN,TOTAL 0.1 MG/DL (0.1-1.0); BLOOD UREA NITROGEN 49 MG/DL (7-18); BUN/CREATININE RATIO 36.8 (10.0-20.0); CALCIUM 7.8 MG/DL (8.5-10.1); CHLORIDE 110 MMOL/L (99-107); CREATININE 1.33 MG/DL (0.60-1.10); GLUCOSE 130 MG/DL (70-104); SODIUM 140 MMOL/L (135-145); TOTAL CARBON DIOXIDE 23.2 MMOL/L (24-32); TOTAL PROTEIN 5.4 G/DL (6.4-8.2); eCRCL 49 ML/MIN; eGFR 53 ML/MIN
[2024-02-09 07:53] LABS: ANISOCYTOSIS 2+; ELLIPTOCYTES FEW; MICROCYTOSIS 1+; PLATELET ESTIMATE INCREASED; TEAR DROP CELLS FEW
[2024-02-09 07:54] LABS: TARGET CELLS FEW
[2024-02-09 08:00] VITALS: RESP 18
[2024-02-09 10:00] VITALS: BP 135/73; PULSE 81; RESP 14; TEMP 99; O2SAT 95
[2024-02-09] MEDS: MESSAGE TO NURSING IV ONE ×2 (11:30→20:11)
[2024-02-09] MEDS: heparin 10,000 units/1 ML INJ IV ONE (11:37)
[2024-02-09] MEDS: heparin 25,000 UNIT/250ml bag 250 ML IV PRN (11:40)
[2024-02-09 11:47] LABS: APTT 32 SECONDS (22-32); PROTHROMBIN TIME 10.8 SECONDS (9.0-12.0)
[2024-02-09 11:49] LABS: BASOPHILS % (AUTO) 0.3 % (0-1); EOSINOPHILS % (AUTO) 0 % (0-6); HEMOGLOBIN 8.2 g/dl (14.0-17.9); LYMPHOCYTES # (AUTO) 2.2 X10'3 (1.1-4.8); LYMPHOCYTES % (AUTO) 15.8 % (21-51); MEAN CORPUSCULAR HEMOGLOBIN 23.9 PG (27.0-31.0); MEAN CORPUSCULAR HGB CONC 31.5 g/dL (33.0-36.5); MEAN PLATELET VOLUME 7.1 FL (7.4-10.4); MONOCYTES # (AUTO) 0.6 X10'3 (0-0.9); NEUTROPHILS # (AUTO) 11.4 X10'3 (1.8-7.7); NEUTROPHILS % (AUTO) 79.9 % (42-75); PLATELET COUNT 512 X10'3 (140-440); RED BLOOD COUNT 3.42 X10'6 (4.70-6.10); RED CELL DISTRIBUTION WIDTH 19.1 % (11.5-14.5); WHITE BLOOD COUNT 14.2 X10'3 (4.5-11.0)
[2024-02-09] MEDS: azithromycin/NS 500mg/250ml 250 ML IV SCH (14:21)
[2024-02-09] MEDS: methylPREDNISolone sod succ 125mg/2ml vial IV SCH (20:10)
[2024-02-09 20:12] VITALS: BP 128/69; PULSE 78; RESP 16; TEMP 98.1; O2SAT 95
[2024-02-09 22:00] VITALS: BP 133/65; PULSE 77; RESP 16; TEMP 97.7; O2SAT 93
[2024-02-09] MEDS: nicotine 14mg patch - 24hr TD SCH (23:20)
[2024-02-09 23:46] VITALS: PULSE 73; RESP 18; O2SAT 92
[2024-02-10] MEDS: MESSAGE TO NURSING IV ONE ×3 (02:34→20:23)
[2024-02-10 06:00] VITALS: BP 131/66; PULSE 67; RESP 16; TEMP 97.6; O2SAT 94
[2024-02-10 06:32] LABS: BASOPHILS # (AUTO) 0.1 X10'3 (0-0.2); BASOPHILS % (AUTO) 0.5 % (0-1); EOSINOPHILS % (AUTO) 0 % (0-6); HEMATOCRIT 24.9 % (42.0-52.0); HEMOGLOBIN 7.8 g/dl (14.0-17.9); LYMPHOCYTES % (AUTO) 17.5 % (21-51); MEAN CORPUSCULAR HEMOGLOBIN 23.9 PG (27.0-31.0); MEAN CORPUSCULAR HGB CONC 31.6 g/dL (33.0-36.5); MEAN CORPUSCULAR VOLUME 75.8 FL (78-98); MEAN PLATELET VOLUME 7.1 FL (7.4-10.4); MONOCYTES # (AUTO) 0.3 X10'3 (0-0.9); MONOCYTES % (AUTO) 2.3 % (2-12); NEUTROPHILS # (AUTO) 9.3 X10'3 (1.8-7.7); NEUTROPHILS % (AUTO) 79.7 % (42-75); PLATELET COUNT 531 X10'3 (140-440); RED BLOOD COUNT 3.28 X10'6 (4.70-6.10); RED CELL DISTRIBUTION WIDTH 19.4 % (11.5-14.5); WHITE BLOOD COUNT 11.7 X10'3 (4.5-11.0)
[2024-02-10 06:50] LABS: ALANINE AMINOTRANSFERASE 11 U/L (12-78); ALBUMIN 2.3 G/DL (3.4-5.0); ALBUMIN/GLOBULIN RATIO 0.7 (1.1-1.5); ALKALINE PHOSPHATASE 30 IU/L (46-116); ANION GAP 7 (8-16); ASPARTATE AMINO TRANSFERASE 17 U/L (10-37); BILIRUBIN,TOTAL 0.2 MG/DL (0.1-1.0); BLOOD UREA NITROGEN 51 MG/DL (7-18); BUN/CREATININE RATIO 34.5 (10.0-20.0); CALCIUM 7.6 MG/DL (8.5-10.1); CHLORIDE 111 MMOL/L (99-107); CREATININE 1.48 MG/DL (0.60-1.10); GLUCOSE 131 MG/DL (70-104); POTASSIUM 3.7 MMOL/L (3.5-5.1); SODIUM 141 MMOL/L (135-145); TOTAL CARBON DIOXIDE 22.8 MMOL/L (24-32); TOTAL PROTEIN 5.5 G/DL (6.4-8.2); eCRCL 44 ML/MIN; eGFR 47 ML/MIN
[2024-02-10 07:09] LABS: CREATININE, URINE 186.7 mg/dL (Not Estab.)
[2024-02-10 08:12] LABS: COMPLEMENT C3, SERUM 152 mg/dL (82-167); COMPLEMENT C4, SERUM 12 mg/dL (12-38); IMMUNOGLOBULIN A, QN, SERUM 657 mg/dL (61-437); IMMUNOGLOBULIN G, QN, SERUM 960 mg/dL (603-1613); IMMUNOGLOBULIN M, QN, SERUM 230 mg/dL (20-172)
[2024-02-10 08:43] VITALS: RESP 18
[2024-02-10 10:00] VITALS: BP 153/80; PULSE 78; RESP 18; TEMP 99.9; O2SAT 95
[2024-02-10 18:00] VITALS: BP 130/74; PULSE 80; RESP 15; TEMP 98; O2SAT 94
[2024-02-10] MEDS ORDERED: methylPREDNISolone sod succ 125mg/2ml vial IV SCH ×2 (20:00)
[2024-02-10 22:00] VITALS: BP 147/85; PULSE 73; RESP 16; TEMP 97.2; O2SAT 97
[2024-02-11] VITALS (8 sets, daily range): BP systolic 130–160; BP diastolic 75–84; PULSE 69–85; RESP 16–20; TEMP 97.2–98; O2SAT 96
[2024-02-11] MEDS: MESSAGE TO NURSING IV ONE ×5 (02:05→23:25)
[2024-02-11 07:02] LABS: BASOPHILS # (AUTO) 0.2 X10'3 (0-0.2); BASOPHILS % (AUTO) 1.1 % (0-1); EOSINOPHILS # (AUTO) 0.1 X10'3 (0-0.9); EOSINOPHILS % (AUTO) 0.3 % (0-6); HEMATOCRIT 30.1 % (42.0-52.0); HEMOGLOBIN 9.7 g/dl (14.0-17.9); LYMPHOCYTES # (AUTO) 5.1 X10'3 (1.1-4.8); LYMPHOCYTES % (AUTO) 30.1 % (21-51); MEAN CORPUSCULAR HEMOGLOBIN 24.4 PG (27.0-31.0); MEAN CORPUSCULAR HGB CONC 32.2 g/dL (33.0-36.5); MEAN CORPUSCULAR VOLUME 75.9 FL (78-98); MEAN PLATELET VOLUME 7.2 FL (7.4-10.4); MONOCYTES # (AUTO) 0.9 X10'3 (0-0.9); MONOCYTES % (AUTO) 5.5 % (2-12); NEUTROPHILS # (AUTO) 10.7 X10'3 (1.8-7.7); PLATELET COUNT 558 X10'3 (140-440); RED BLOOD COUNT 3.97 X10'6 (4.70-6.10); RED CELL DISTRIBUTION WIDTH 19.4 % (11.5-14.5)
[2024-02-11 07:46] LABS: ALANINE AMINOTRANSFERASE 11 U/L (12-78); ALBUMIN 1.2 G/DL (3.4-5.0); ALBUMIN/GLOBULIN RATIO 0.3 (1.1-1.5); ALKALINE PHOSPHATASE 38 IU/L (46-116); ANION GAP 7 (8-16); ASPARTATE AMINO TRANSFERASE 18 U/L (10-37); BILIRUBIN,TOTAL 0.1 MG/DL (0.1-1.0); BLOOD UREA NITROGEN 49 MG/DL (7-18); BUN/CREATININE RATIO 35.3 (10.0-20.0); CALCIUM 7.5 MG/DL (8.5-10.1); CHLORIDE 111 MMOL/L (99-107); CREATININE 1.39 MG/DL (0.60-1.10); GLUCOSE 87 MG/DL (70-104); POTASSIUM 3.7 MMOL/L (3.5-5.1); SODIUM 142 MMOL/L (135-145); TOTAL CARBON DIOXIDE 24.2 MMOL/L (24-32); TOTAL PROTEIN 4.9 G/DL (6.4-8.2); eCRCL 47 ML/MIN; eGFR 51 ML/MIN
[2024-02-11 07:51] LABS: % IRON SATURATION 119 % (11-46); IRON 62 UG/DL (53-167); TOTAL IRON BINDING CAPACITY 52 UG/DL (259-388)
[2024-02-11] MEDS: predniSONE 20 mg tablet PO SCH (08:46)
[2024-02-11 13:14] LABS: ANTINUCLEAR ANTIBODIES Negative (Negative)
[2024-02-11] MEDS: EPOETIN ALFA-EPBX 20,000 UNIT/ML 1 ML MDV IV ONE (15:47)
[2024-02-11] MEDS: heparin 10,000 units/1 ML INJ IV PRN (16:17)
[2024-02-12] VITALS (9 sets, daily range): BP systolic 132–133; BP diastolic 70–92; PULSE 65–91; RESP 16–19; TEMP 97.6–98.6; O2SAT 94–98
[2024-02-12 03:42] LABS: BASOPHILS # (AUTO) 0.2 X10'3 (0-0.2); BASOPHILS % (AUTO) 1.1 % (0-1); EOSINOPHILS # (AUTO) 0.1 X10'3 (0-0.9); EOSINOPHILS % (AUTO) 0.3 % (0-6); HEMATOCRIT 32.2 % (42.0-52.0); HEMOGLOBIN 10.4 g/dl (14.0-17.9); LYMPHOCYTES # (AUTO) 5.9 X10'3 (1.1-4.8); LYMPHOCYTES % (AUTO) 35.2 % (21-51); MEAN CORPUSCULAR HEMOGLOBIN 24.1 PG (27.0-31.0); MEAN CORPUSCULAR HGB CONC 32.3 g/dL (33.0-36.5); MEAN CORPUSCULAR VOLUME 74.5 FL (78-98); MEAN PLATELET VOLUME 7.3 FL (7.4-10.4); MONOCYTES % (AUTO) 6.1 % (2-12); NEUTROPHILS # (AUTO) 9.5 X10'3 (1.8-7.7); NEUTROPHILS % (AUTO) 57.3 % (42-75); PLATELET COUNT 586 X10'3 (140-440); RED BLOOD COUNT 4.32 X10'6 (4.70-6.10); RED CELL DISTRIBUTION WIDTH 19.6 % (11.5-14.5); WHITE BLOOD COUNT 16.6 X10'3 (4.5-11.0)
[2024-02-12 03:55] LABS: ALANINE AMINOTRANSFERASE 16 U/L (12-78); ALBUMIN 0.9 G/DL (3.4-5.0); ALBUMIN/GLOBULIN RATIO 0.2 (1.1-1.5); ALKALINE PHOSPHATASE 46 IU/L (46-116); ANION GAP 5 (8-16); ASPARTATE AMINO TRANSFERASE 21 U/L (10-37); BILIRUBIN,TOTAL 0.1 MG/DL (0.1-1.0); BLOOD UREA NITROGEN 44 MG/DL (7-18); BUN/CREATININE RATIO 40.4 (10.0-20.0); CALCIUM 7.4 MG/DL (8.5-10.1); CHLORIDE 109 MMOL/L (99-107); CREATININE 1.09 MG/DL (0.60-1.10); GLUCOSE 102 MG/DL (70-104); POTASSIUM 3.5 MMOL/L (3.5-5.1); SODIUM 140 MMOL/L (135-145); TOTAL CARBON DIOXIDE 26.3 MMOL/L (24-32); TOTAL PROTEIN 4.6 G/DL (6.4-8.2); eCRCL 60 ML/MIN; eGFR 67 ML/MIN
[2024-02-12 04:16] LABS: TOTAL CELLS COUNTED 100
[2024-02-12 04:17] LABS: ANISOCYTOSIS 2+; MICROCYTOSIS 1+; PLATELET ESTIMATE INCREASED
[2024-02-12] MEDS: MESSAGE TO NURSING IV ONE ×2 (04:35→13:46)
[2024-02-12 05:21] LABS: HEPATITIS C VIRUS ANTIBODY Reactive (Non Reactive)
[2024-02-12] MEDS ORDERED: losartan 50mg tablet PO SCH (08:00)
[2024-02-12] MEDS: losartan 25mg tablet PO SCH (08:50)
[2024-02-12] MEDS: furosemide 20 MG/2 ML vial IV SCH (11:21)
[2024-02-13] VITALS (21 sets, daily range): BP systolic 106–143; BP diastolic 60–83; PULSE 68–91; RESP 14–18; TEMP 98–98.6; O2SAT 68–98
[2024-02-13 06:55] LABS: ALANINE AMINOTRANSFERASE 13 U/L (12-78); ALBUMIN 0.7 G/DL (3.4-5.0); ALBUMIN/GLOBULIN RATIO 0.2 (1.1-1.5); ALKALINE PHOSPHATASE 51 IU/L (46-116); ANION GAP 6 (8-16); ASPARTATE AMINO TRANSFERASE 16 U/L (10-37); BILIRUBIN,TOTAL 0.1 MG/DL (0.1-1.0); BLOOD UREA NITROGEN 44 MG/DL (7-18); BUN/CREATININE RATIO 41.1 (10.0-20.0); CALCIUM 7.2 MG/DL (8.5-10.1); CHLORIDE 109 MMOL/L (99-107); CREATININE 1.07 MG/DL (0.60-1.10); GLUCOSE 92 MG/DL (70-104); POTASSIUM 3.8 MMOL/L (3.5-5.1); SODIUM 140 MMOL/L (135-145); TOTAL CARBON DIOXIDE 25.5 MMOL/L (24-32); TOTAL PROTEIN 4.1 G/DL (6.4-8.2); eCRCL 61 ML/MIN; eGFR 69 ML/MIN
[2024-02-13] MEDS: lisinopril 10 MG tablet PO SCH (09:30)
[2024-02-13 11:44] LABS: EOSINOPHILS # (AUTO) 0.1 X10'3 (0-0.9); PLATELET COUNT 652 X10'3 (140-440)
[2024-02-13 11:46] LABS: BASOPHILS # (AUTO) 0.1 X10'3 (0-0.2); BASOPHILS % (AUTO) 0.4 % (0-1); EOSINOPHILS % (AUTO) 0.4 % (0-6); HEMATOCRIT 36.1 % (42.0-52.0); HEMOGLOBIN 11.6 g/dl (14.0-17.9); LYMPHOCYTES # (AUTO) 2.9 X10'3 (1.1-4.8); LYMPHOCYTES % (AUTO) 19.2 % (21-51); MEAN CORPUSCULAR HEMOGLOBIN 24.3 PG (27.0-31.0); MEAN CORPUSCULAR VOLUME 75.9 FL (78-98); MEAN PLATELET VOLUME 7.7 FL (7.4-10.4); MONOCYTES # (AUTO) 0.5 X10'3 (0-0.9); MONOCYTES % (AUTO) 3.1 % (2-12); NEUTROPHILS # (AUTO) 11.7 X10'3 (1.8-7.7); NEUTROPHILS % (AUTO) 76.9 % (42-75); RED BLOOD COUNT 4.76 X10'6 (4.70-6.10); WHITE BLOOD COUNT 15.2 X10'3 (4.5-11.0)
[2024-02-13] MEDS: albumin (human) 25% 100 ML IV solution IV SCH (12:51)
[2024-02-13] MEDS ORDERED: LIDOcaine 1% (10mg/ml) 2ml vial ONE (13:27)
[2024-02-13] MEDS ORDERED: midazolam 1 mg/ML 2ml injection ONE (13:27)
[2024-02-13] MEDS ORDERED: fentaNYL/PF 50MCG/1 ML 2ML syringe ONE (13:27)
[2024-02-13] MEDS ORDERED: gelatin sponge, absorbable (Gelfoam 12-7MM) sponge TP ONE (13:35)
[2024-02-13 19:03] LABS: BASOPHILS % (AUTO) 0.5 % (0-1); EOSINOPHILS % (AUTO) 0 % (0-6); HEMATOCRIT 29.8 % (42.0-52.0); HEMOGLOBIN 9.7 g/dl (14.0-17.9); LYMPHOCYTES # (AUTO) 2.4 X10'3 (1.1-4.8); LYMPHOCYTES % (AUTO) 28.2 % (21-51); MEAN CORPUSCULAR HEMOGLOBIN 24.3 PG (27.0-31.0); MEAN CORPUSCULAR HGB CONC 32.5 g/dL (33.0-36.5); MEAN PLATELET VOLUME 7.4 FL (7.4-10.4); MONOCYTES # (AUTO) 0.4 X10'3 (0-0.9); MONOCYTES % (AUTO) 4.5 % (2-12); NEUTROPHILS # (AUTO) 5.6 X10'3 (1.8-7.7); NEUTROPHILS % (AUTO) 66.8 % (42-75); PLATELET COUNT 429 X10'3 (140-440); RED BLOOD COUNT 3.98 X10'6 (4.70-6.10); RED CELL DISTRIBUTION WIDTH 19.8 % (11.5-14.5); WHITE BLOOD COUNT 8.4 X10'3 (4.5-11.0)
[2024-02-13 23:05] LABS: HEMATOCRIT 28.1 % (42.0-52.0); HEMOGLOBIN 9.3 g/dl (14.0-17.9); MEAN CORPUSCULAR HEMOGLOBIN 24.4 PG (27.0-31.0); MEAN CORPUSCULAR HGB CONC 33.2 g/dL (33.0-36.5); MEAN CORPUSCULAR VOLUME 73.5 FL (78-98); MEAN PLATELET VOLUME 6.7 FL (7.4-10.4); PLATELET COUNT 489 X10'3 (140-440); RED BLOOD COUNT 3.83 X10'6 (4.70-6.10); RED CELL DISTRIBUTION WIDTH 19.6 % (11.5-14.5); WHITE BLOOD COUNT 10.7 X10'3 (4.5-11.0)
[2024-02-14 03:37] LABS: HEMATOCRIT 24.9 % (42.0-52.0); HEMOGLOBIN 8.1 g/dl (14.0-17.9); MEAN CORPUSCULAR HEMOGLOBIN 24.8 PG (27.0-31.0); MEAN CORPUSCULAR HGB CONC 32.7 g/dL (33.0-36.5); MEAN PLATELET VOLUME 6.8 FL (7.4-10.4); PLATELET COUNT 462 X10'3 (140-440); RED BLOOD COUNT 3.28 X10'6 (4.70-6.10); RED CELL DISTRIBUTION WIDTH 19.9 % (11.5-14.5); WHITE BLOOD COUNT 9.7 X10'3 (4.5-11.0)
[2024-02-14 06:00] VITALS: BP 112/71; PULSE 93; RESP 18; TEMP 98; O2SAT 91
[2024-02-14] MEDS: apixaban 2.5mg tablet PO SCH (07:26)
[2024-02-14 08:00] LABS: BASOPHILS # (AUTO) 0.1 X10'3 (0-0.2); BASOPHILS % (AUTO) 0.7 % (0-1); EOSINOPHILS # (AUTO) 0.2 X10'3 (0-0.9); EOSINOPHILS % (AUTO) 1.4 % (0-6); HEMATOCRIT 27.6 % (42.0-52.0); HEMOGLOBIN 9.1 g/dl (14.0-17.9); LYMPHOCYTES # (AUTO) 4.4 X10'3 (1.1-4.8); LYMPHOCYTES % (AUTO) 40.2 % (21-51); MEAN CORPUSCULAR HEMOGLOBIN 24.8 PG (27.0-31.0); MEAN CORPUSCULAR HGB CONC 32.9 g/dL (33.0-36.5); MEAN CORPUSCULAR VOLUME 75.1 FL (78-98); MEAN PLATELET VOLUME 7.2 FL (7.4-10.4); MONOCYTES # (AUTO) 0.7 X10'3 (0-0.9); MONOCYTES % (AUTO) 6.9 % (2-12); NEUTROPHILS # (AUTO) 5.5 X10'3 (1.8-7.7); NEUTROPHILS % (AUTO) 50.8 % (42-75); PLATELET COUNT 489 X10'3 (140-440); RED BLOOD COUNT 3.68 X10'6 (4.70-6.10); RED CELL DISTRIBUTION WIDTH 20.2 % (11.5-14.5); WHITE BLOOD COUNT 10.8 X10'3 (4.5-11.0)
[2024-02-14 08:30] LABS: ALANINE AMINOTRANSFERASE 26 U/L (12-78); ALBUMIN 2.3 G/DL (3.4-5.0); ALBUMIN/GLOBULIN RATIO 0.9 (1.1-1.5); ALKALINE PHOSPHATASE 32 IU/L (46-116); ANION GAP 6 (8-16); ASPARTATE AMINO TRANSFERASE 27 U/L (10-37); BILIRUBIN,TOTAL 0.4 MG/DL (0.1-1.0); BLOOD UREA NITROGEN 32 MG/DL (7-18); BUN/CREATININE RATIO 35.2 (10.0-20.0); CALCIUM 7.6 MG/DL (8.5-10.1); CHLORIDE 107 MMOL/L (99-107); CREATININE 0.91 MG/DL (0.60-1.10); GLUCOSE 89 MG/DL (70-104); POTASSIUM 3.3 MMOL/L (3.5-5.1); SODIUM 141 MMOL/L (135-145); TOTAL CARBON DIOXIDE 27.8 MMOL/L (24-32); TOTAL PROTEIN 4.9 G/DL (6.4-8.2); eCRCL 71 ML/MIN; eGFR 83 ML/MIN
[2024-02-14 09:38] LABS: PLATELET ESTIMATE INCREASED
[2024-02-14 09:39] LABS: ANISOCYTOSIS 3+; HYPOCHROMASIA 1+; MICROCYTOSIS 1+; ROULEAUX 1+; TARGET CELLS FEW
[2024-02-14 10:00] VITALS: BP 120/73; PULSE 84; RESP 16; TEMP 98.2; O2SAT 96
[2024-02-14] MEDS ORDERED: potassium Cl 40MEQ/1/2NS 520ml 520 ML IV PRN (10:40)
[2024-02-14] MEDS ORDERED: magnesium sulf-water 2g/50mL 50 ML IV PRN (10:40)
[2024-02-14] MEDS ORDERED: magnesium sulf-water 4G/100mL 100 ML IV PRN (10:40)
[2024-02-14] MEDS ORDERED: potassium Cl 20 mEq SR tablet PO PRN (11:10)
[2024-02-14] MEDS: potassium Cl 20 mEq SR tablet PO PRN (11:12)
[2024-02-14 11:23] LABS: MAGNESIUM 1.6 MG/DL (1.5-2.4); POTASSIUM 3.2 MMOL/L (3.5-5.1)
[2024-02-14 14:13] VITALS: PULSE 85; RESP 16; O2SAT 95
[2024-02-14 15:12] LABS: A/G RATIO 0.2 (0.7-1.7); ALBUMIN 0.8 g/dL (2.9-4.4); ALPHA-1-GLOBULIN 0.2 g/dL (0.0-0.4); ALPHA-2-GLOBULIN 1.6 g/dL (0.4-1.0); BETA GLOBULIN 1.2 g/dL (0.7-1.3); GAMMA GLOBULIN 0.8 g/dL (0.4-1.8); GLOBULIN, TOTAL 3.8 g/dL (2.2-3.9); M-SPIKE Not Observed g/dL (Not Observed); PROTEIN, TOTAL, SERUM 4.6 g/dL (6.0-8.5)
[2024-02-14 18:00] VITALS: BP 129/71; PULSE 73; RESP 18; TEMP 97.7; O2SAT 97
[2024-02-14] MEDS: apixaban 5mg tablet PO SCH (21:39)
[2024-02-14] MEDS: lisinopril 10 MG tablet PO SCH (21:42)
[2024-02-14] MEDS: albumin (human) 25% 100 ML IV solution IV SCH (21:44)
[2024-02-14 22:00] VITALS: BP 129/77; PULSE 75; RESP 16; TEMP 98.1; O2SAT 95
[2024-02-14 22:50] VITALS: PULSE 75; RESP 16; O2SAT 95
[2024-02-15] VITALS (8 sets, daily range): BP systolic 123–147; BP diastolic 63–86; PULSE 73–83; RESP 16–20; TEMP 97.5–98.7; O2SAT 92–97
[2024-02-15 07:45] LABS: BASOPHILS # (AUTO) 0.1 X10'3 (0-0.2); BASOPHILS % (AUTO) 0.9 % (0-1); EOSINOPHILS # (AUTO) 0.3 X10'3 (0-0.9); EOSINOPHILS % (AUTO) 2.3 % (0-6); HEMATOCRIT 25.2 % (42.0-52.0); HEMOGLOBIN 8.3 g/dl (14.0-17.9); LYMPHOCYTES # (AUTO) 5.1 X10'3 (1.1-4.8); LYMPHOCYTES % (AUTO) 43.8 % (21-51); MEAN CORPUSCULAR HEMOGLOBIN 25.2 PG (27.0-31.0); MEAN CORPUSCULAR HGB CONC 32.9 g/dL (33.0-36.5); MEAN CORPUSCULAR VOLUME 76.6 FL (78-98); MEAN PLATELET VOLUME 7.2 FL (7.4-10.4); MONOCYTES # (AUTO) 0.7 X10'3 (0-0.9); MONOCYTES % (AUTO) 6.4 % (2-12); NEUTROPHILS # (AUTO) 5.5 X10'3 (1.8-7.7); NEUTROPHILS % (AUTO) 46.6 % (42-75); PLATELET COUNT 427 X10'3 (140-440); RED BLOOD COUNT 3.29 X10'6 (4.70-6.10); RED CELL DISTRIBUTION WIDTH 20.3 % (11.5-14.5); WHITE BLOOD COUNT 11.7 X10'3 (4.5-11.0)
[2024-02-15 08:43] LABS: ALANINE AMINOTRANSFERASE 22 U/L (12-78); ALBUMIN 2.6 G/DL (3.4-5.0); ALBUMIN/GLOBULIN RATIO 1.2 (1.1-1.5); ALKALINE PHOSPHATASE 28 IU/L (46-116); ASPARTATE AMINO TRANSFERASE 21 U/L (10-37); BILIRUBIN,TOTAL 0.3 MG/DL (0.1-1.0); BLOOD UREA NITROGEN 27 MG/DL (7-18); BUN/CREATININE RATIO 35.5 (10.0-20.0); CREATININE 0.76 MG/DL (0.60-1.10); GLUCOSE 91 MG/DL (70-104); TOTAL CARBON DIOXIDE 25.3 MMOL/L (24-32); TOTAL PROTEIN 4.8 G/DL (6.4-8.2); eCRCL 93 ML/MIN; eGFR > 90 ML/MIN
[2024-02-15 09:08] LABS: ANION GAP 8 (8-16); CHLORIDE 110 MMOL/L (99-107); MAGNESIUM 1.7 MG/DL (1.5-2.4); POTASSIUM 3.6 MMOL/L (3.5-5.1); SODIUM 143 MMOL/L (135-145)
[2024-02-15] MEDS: diatr meglu/diatrizoate 30ml oral sol.-(3 dose) bottle PO SCH (21:42)
[2024-02-16] VITALS (8 sets, daily range): BP systolic 116–128; BP diastolic 68–83; PULSE 68–87; RESP 16–19; TEMP 97–98.2; O2SAT 93–97
[2024-02-16] MEDS: albumin (human) 25% 100 ML IV solution IV SCH (07:46)
[2024-02-16 07:53] LABS: BASOPHILS % (AUTO) 0.1 % (0-1); EOSINOPHILS # (AUTO) 0.4 X10'3 (0-0.9); EOSINOPHILS % (AUTO) 2.7 % (0-6); HEMATOCRIT 27.7 % (42.0-52.0); HEMOGLOBIN 9.1 g/dl (14.0-17.9); LYMPHOCYTES # (AUTO) 6.4 X10'3 (1.1-4.8); LYMPHOCYTES % (AUTO) 46.4 % (21-51); MEAN CORPUSCULAR HGB CONC 32.9 g/dL (33.0-36.5); MEAN CORPUSCULAR VOLUME 75.8 FL (78-98); MEAN PLATELET VOLUME 7.3 FL (7.4-10.4); MONOCYTES # (AUTO) 0.8 X10'3 (0-0.9); MONOCYTES % (AUTO) 5.5 % (2-12); NEUTROPHILS # (AUTO) 6.3 X10'3 (1.8-7.7); NEUTROPHILS % (AUTO) 45.3 % (42-75); PLATELET COUNT 474 X10'3 (140-440); RED BLOOD COUNT 3.66 X10'6 (4.70-6.10); RED CELL DISTRIBUTION WIDTH 20.5 % (11.5-14.5); WHITE BLOOD COUNT 13.8 X10'3 (4.5-11.0)
[2024-02-16 08:07] LABS: ALANINE AMINOTRANSFERASE 21 U/L (12-78); ALBUMIN 2.3 G/DL (3.4-5.0); ALBUMIN/GLOBULIN RATIO 0.9 (1.1-1.5); ALKALINE PHOSPHATASE 32 IU/L (46-116); ANION GAP 6 (8-16); ASPARTATE AMINO TRANSFERASE 16 U/L (10-37); BILIRUBIN,TOTAL 0.2 MG/DL (0.1-1.0); BLOOD UREA NITROGEN 25 MG/DL (7-18); BUN/CREATININE RATIO 31.6 (10.0-20.0); CALCIUM 7.3 MG/DL (8.5-10.1); CHLORIDE 109 MMOL/L (99-107); CREATININE 0.79 MG/DL (0.60-1.10); GLUCOSE 85 MG/DL (70-104); MAGNESIUM 1.7 MG/DL (1.5-2.4); POTASSIUM 3.3 MMOL/L (3.5-5.1); SODIUM 142 MMOL/L (135-145); TOTAL CARBON DIOXIDE 26.8 MMOL/L (24-32); TOTAL PROTEIN 4.8 G/DL (6.4-8.2); eCRCL 89 ML/MIN; eGFR > 90 ML/MIN
[2024-02-16] MEDS: potassium Cl 20 mEq SR tablet PO SCH (12:56)
[2024-02-16] MEDS: losartan 50mg tablet PO SCH (20:31)
[2024-02-16] MEDS: lisinopril 10 MG tablet PO SCH (20:31)
[2024-02-16] MEDS: predniSONE 20 mg tablet PO SCH (20:32)
[2024-02-17] VITALS (7 sets, daily range): BP systolic 127–146; BP diastolic 72–77; PULSE 74–85; RESP 14–18; TEMP 97.7–98.4; O2SAT 80–97
[2024-02-17 06:38] LABS: ALANINE AMINOTRANSFERASE 21 U/L (12-78); ALBUMIN 2.3 G/DL (3.4-5.0); ALBUMIN/GLOBULIN RATIO 0.8 (1.1-1.5); ALKALINE PHOSPHATASE 34 IU/L (46-116); ANION GAP 7 (8-16); ASPARTATE AMINO TRANSFERASE 15 U/L (10-37); BILIRUBIN,TOTAL 0.3 MG/DL (0.1-1.0); BLOOD UREA NITROGEN 23 MG/DL (7-18); BUN/CREATININE RATIO 28.8 (10.0-20.0); CALCIUM 7.5 MG/DL (8.5-10.1); CHLORIDE 105 MMOL/L (99-107); GLUCOSE 157 MG/DL (70-104); MAGNESIUM 1.7 MG/DL (1.5-2.4); POTASSIUM 4.2 MMOL/L (3.5-5.1); SODIUM 138 MMOL/L (135-145); TOTAL CARBON DIOXIDE 25.8 MMOL/L (24-32); TOTAL PROTEIN 5.2 G/DL (6.4-8.2); eCRCL 86 ML/MIN; eGFR > 90 ML/MIN
[2024-02-17 08:18] LABS: BASOPHILS # (AUTO) 0.1 X10'3 (0-0.2); BASOPHILS % (AUTO) 0.9 % (0-1); EOSINOPHILS % (AUTO) 0 % (0-6); HEMATOCRIT 31.4 % (42.0-52.0); HEMOGLOBIN 10.1 g/dl (14.0-17.9); LYMPHOCYTES # (AUTO) 2.9 X10'3 (1.1-4.8); LYMPHOCYTES % (AUTO) 22.2 % (21-51); MEAN CORPUSCULAR HEMOGLOBIN 24.7 PG (27.0-31.0); MEAN CORPUSCULAR HGB CONC 32.2 g/dL (33.0-36.5); MEAN CORPUSCULAR VOLUME 76.6 FL (78-98); MONOCYTES # (AUTO) 0.6 X10'3 (0-0.9); MONOCYTES % (AUTO) 4.4 % (2-12); NEUTROPHILS # (AUTO) 9.6 X10'3 (1.8-7.7); NEUTROPHILS % (AUTO) 72.5 % (42-75); PLATELET COUNT 541 X10'3 (140-440); RED CELL DISTRIBUTION WIDTH 20.1 % (11.5-14.5); WHITE BLOOD COUNT 13.2 X10'3 (4.5-11.0)
[2024-02-17 13:09] LABS: M-SPIKE, % SEE COMMENTS
[2024-02-17 13:10] LABS: GAMMA GLOBULIN,UR SEE COMMENTS
[2024-02-17 13:11] LABS: BETA GLOBULIN, UR SEE COMMENTS
[2024-02-17 13:12] LABS: ALPHA-2-GLOBULIN,UR SEE COMMENTS
[2024-02-17 13:13] LABS: ALPHA-1-GLOBULIN,UR SEE COMMENTS
[2024-02-17 13:14] LABS: ALBUMIN, UR SEE COMMENTS
[2024-02-17 14:16] LABS: PROTEIN,TOTAL,URINE SEE COMMENTS
[2024-02-17] MEDS: lisinopril 10 MG tablet PO SCH (20:57)
[2024-02-18] VITALS (8 sets, daily range): BP systolic 107–134; BP diastolic 58–72; PULSE 72–84; RESP 12–18; TEMP 97.9–98.4; O2SAT 94–96
[2024-02-18 06:23] LABS: BASOPHILS # (AUTO) 0.1 X10'3 (0-0.2); BASOPHILS % (AUTO) 0.7 % (0-1); EOSINOPHILS % (AUTO) 0 % (0-6); HEMATOCRIT 30.7 % (42.0-52.0); HEMOGLOBIN 9.9 g/dl (14.0-17.9); LYMPHOCYTES # (AUTO) 2.5 X10'3 (1.1-4.8); LYMPHOCYTES % (AUTO) 18.9 % (21-51); MEAN CORPUSCULAR HEMOGLOBIN 24.9 PG (27.0-31.0); MEAN CORPUSCULAR HGB CONC 32.4 g/dL (33.0-36.5); MEAN CORPUSCULAR VOLUME 76.8 FL (78-98); MEAN PLATELET VOLUME 7.7 FL (7.4-10.4); MONOCYTES # (AUTO) 0.6 X10'3 (0-0.9); MONOCYTES % (AUTO) 4.8 % (2-12); NEUTROPHILS # (AUTO) 9.9 X10'3 (1.8-7.7); NEUTROPHILS % (AUTO) 75.6 % (42-75); PLATELET COUNT 456 X10'3 (140-440); RED BLOOD COUNT 3.99 X10'6 (4.70-6.10); RED CELL DISTRIBUTION WIDTH 21.6 % (11.5-14.5); WHITE BLOOD COUNT 13.1 X10'3 (4.5-11.0)
[2024-02-18 06:37] LABS: MAGNESIUM 1.8 MG/DL (1.5-2.4)
[2024-02-18 08:49] LABS: ALANINE AMINOTRANSFERASE 21 U/L (12-78); ALBUMIN 2.6 G/DL (3.4-5.0); ALKALINE PHOSPHATASE 34 IU/L (46-116); ANION GAP 11 (8-16); ASPARTATE AMINO TRANSFERASE 13 U/L (10-37); BILIRUBIN,TOTAL 0.1 MG/DL (0.1-1.0); BLOOD UREA NITROGEN 29 MG/DL (7-18); BUN/CREATININE RATIO 39.2 (10.0-20.0); CALCIUM 8.1 MG/DL (8.5-10.1); CHLORIDE 108 MMOL/L (99-107); CREATININE 0.74 MG/DL (0.60-1.10); GLUCOSE 154 MG/DL (70-104); POTASSIUM 4.6 MMOL/L (3.5-5.1); SODIUM 141 MMOL/L (135-145); TOTAL CARBON DIOXIDE 22.2 MMOL/L (24-32); TOTAL PROTEIN 5.3 G/DL (6.4-8.2); eCRCL 93 ML/MIN; eGFR > 90 ML/MIN
[2024-02-19 06:00] VITALS: BP 108/68; PULSE 68; RESP 20; TEMP 97.3; O2SAT 97
[2024-02-19 06:03] LABS: BASOPHILS # (AUTO) 0.2 X10'3 (0-0.2); EOSINOPHILS % (AUTO) 0.1 % (0-6); HEMATOCRIT 33.8 % (42.0-52.0); HEMOGLOBIN 10.8 g/dl (14.0-17.9); LYMPHOCYTES # (AUTO) 2.8 X10'3 (1.1-4.8); LYMPHOCYTES % (AUTO) 18.5 % (21-51); MEAN CORPUSCULAR HGB CONC 32.1 g/dL (33.0-36.5); MEAN CORPUSCULAR VOLUME 77.7 FL (78-98); MEAN PLATELET VOLUME 7.6 FL (7.4-10.4); MONOCYTES # (AUTO) 0.6 X10'3 (0-0.9); MONOCYTES % (AUTO) 4.3 % (2-12); NEUTROPHILS # (AUTO) 11.5 X10'3 (1.8-7.7); NEUTROPHILS % (AUTO) 76.1 % (42-75); PLATELET COUNT 521 X10'3 (140-440); RED BLOOD COUNT 4.34 X10'6 (4.70-6.10); RED CELL DISTRIBUTION WIDTH 20.9 % (11.5-14.5); WHITE BLOOD COUNT 15.1 X10'3 (4.5-11.0)
[2024-02-19 06:11] LABS: ALANINE AMINOTRANSFERASE 21 U/L (12-78); ALBUMIN 2.5 G/DL (3.4-5.0); ALBUMIN/GLOBULIN RATIO 0.8 (1.1-1.5); ALKALINE PHOSPHATASE 40 IU/L (46-116); ANION GAP 7 (8-16); ASPARTATE AMINO TRANSFERASE 18 U/L (10-37); BILIRUBIN,TOTAL 0.2 MG/DL (0.1-1.0); BLOOD UREA NITROGEN 21 MG/DL (7-18); BUN/CREATININE RATIO 30.9 (10.0-20.0); CALCIUM 8.1 MG/DL (8.5-10.1); CHLORIDE 104 MMOL/L (99-107); CREATININE 0.68 MG/DL (0.60-1.10); GLUCOSE 137 MG/DL (70-104); POTASSIUM 4.4 MMOL/L (3.5-5.1); SODIUM 137 MMOL/L (135-145); TOTAL CARBON DIOXIDE 26.5 MMOL/L (24-32); TOTAL PROTEIN 5.6 G/DL (6.4-8.2); eCRCL 101 ML/MIN; eGFR > 90 ML/MIN
[2024-02-19 08:00] VITALS: RESP 16; O2SAT 95
[2024-02-19 10:00] VITALS: BP 107/61; PULSE 77; RESP 15; TEMP 97.2; O2SAT 100
[2024-02-19 10:11] VITALS: PULSE 75; RESP 18; O2SAT 97
[2024-02-19] MEDS ORDERED: APIX5TAB3 PO (10:49)
[2024-02-19] MEDS ORDERED: ATOR20TA66 PO (10:49)
[2024-02-19] MEDS ORDERED: LOSA50TA64 PO (10:49)
[2024-02-19] MEDS ORDERED: LISI20TA28 PO (10:49)
== END 2024-02-19 14:45 | disposition home health service (06) | DRG 177 ==
LOC: ER 11:49 → ED HOLD 15:16 → ORTHO 4S 21:20 → SUR 3N 02-16 18:50
PROVIDERS: ADMIT Family Medicine; ATTEND Family Medicine
PROC: 0T903ZX Drainage of Right Kidney, Percutaneous Approach, Diagnostic (ICD-10-PCS; principal; 2024-02-13)
DX: J15.69 Pneumonia due to other Gram-negative bacteria (principal); I50.33 Acute on chronic diastolic (congestive) heart failure; I13.0 Hypertensive heart and chronic kidney disease with heart failure and stage 1 through stage 4 chronic kidney disease, or unspecified chronic kidney disease; J44.0 Chronic obstructive pulmonary disease with (acute) lower respiratory infection; N17.9 Acute kidney failure, unspecified; J15.9 Unspecified bacterial pneumonia; N18.30 Chronic kidney disease, stage 3 unspecified; E87.6 Hypokalemia; D69.6 Thrombocytopenia, unspecified; B19.20 Unspecified viral hepatitis C without hepatic coma; Z66 Do not resuscitate; F15.10 Other stimulant abuse, uncomplicated; M06.9 Rheumatoid arthritis, unspecified; D50.9 Iron deficiency anemia, unspecified; Z79.899 Other long term (current) drug therapy
CPT/HCPCS: 36415; 50200; 71045; 71250; 74176; 76700; 77012; 80053; 80061; 80305; 81001; 82043; 82570; 82595; 82728; 82784; 83036; 83540; 83550; 83735; 83880; 83935; 84100; 84132; 84133; 84145; 84155; 84156; 84165; 84166; 84300; 84466; 84484; 84540; 85007; 85008; 85025; 85027; 85610; 85651; 85730; 86038; 86060; 86160; 86334; 86335; 86803; 87081; 87522; 88300; 88350; 93005; 93306; 94760; 97116; 97161; 97164; 97530; 99152; 99153; 99285; A4421; A4615; G0378; J0456; J0696; J1644; J1940; J2003; J2250; J2919; J3010; J7040; J7512; P9047; Q4081; Q9963

== ENCOUNTER 2024-06-15 05:19 | Inpatient (IN) | payer MEDICARE, MEDICAID ==
[2024-06-10 11:48] LABS: BASOPHILS # (AUTO) 0.1 X10'3 (0-0.2); EOSINOPHILS # (AUTO) 0.1 X10'3 (0-0.9); LYMPHOCYTES # (AUTO) 3.1 X10'3 (1.1-4.8); MEAN CORPUSCULAR VOLUME 74.6 FL (78-98); MONOCYTES # (AUTO) 0.9 X10'3 (0-0.9)
[2024-06-10 11:49] LABS: BASOPHILS % (AUTO) 1.1 % (0-1); EOSINOPHILS % (AUTO) 0.7 % (0-6); LYMPHOCYTES % (AUTO) 23.1 % (21-51); MEAN CORPUSCULAR HGB CONC 32.2 g/dL (33.0-36.5); MEAN PLATELET VOLUME 6.7 FL (7.4-10.4); MONOCYTES % (AUTO) 6.6 % (2-12); NEUTROPHILS # (AUTO) 9.1 X10'3 (1.8-7.7); NEUTROPHILS % (AUTO) 68.5 % (42-75); PRE OP HEMATOCRIT 29.8 % (42.0-52.0); PRE OP PLATELET COUNT 931 X10'3 (140-440); PRE OP WHITE BLOOD COUNT 13.3 10'3 (4.8-10.8); RED BLOOD COUNT 3.99 X10'6 (4.70-6.10); RED CELL DISTRIBUTION WIDTH 17.5 % (11.5-14.5)
[2024-06-10 12:20] LABS: PRE OP HEMOGLOBIN 9.6 g/dL (14.0-17.9)
[2024-06-10 13:22] LABS: ALBUMIN 2.5 G/DL (3.4-5.0); ALBUMIN/GLOBULIN RATIO 0.4 (1.1-1.5); ALKALINE PHOSPHATASE 82 IU/L (46-116); BLOOD UREA NITROGEN 15 MG/DL (7-18); BUN/CREATININE RATIO 21.1 (10.0-20.0); CALCIUM 9.2 MG/DL (8.5-10.1); CHLORIDE 100 MMOL/L (99-107); CREATININE 0.71 MG/DL (0.60-1.10); PRE OP ALT 20 U/L (30-65); PRE OP ANION GAP 10 (8-16); PRE OP AST 16 U/L (10-37); PRE OP BILIRUB, TOTAL 0.4 MG/DL (0.0-1.0); PRE OP GLUCOSE 109 MG/DL (70-104); PRE OP POTASSIUM 4.6 MMOL/L (3.4-5.1); PRE OP SODIUM 134 MMOL/L (135-145); TOTAL CARBON DIOXIDE 24.3 MMOL/L (24-32); TOTAL PROTEIN 9.1 G/DL (6.4-8.2); eGFR > 90 ML/MIN
[~2024-06-15] VITALS: Ht 175.3 cm; Wt 66.2 kg
[2024-06-15] VITALS (29 sets, daily range): BP systolic 86–126; BP diastolic 56–75; PULSE 78–128; RESP 15–20; TEMP 98.4–100.2; O2SAT 92–100
[~2024-06-15 05:19] MED LIST changes: +ACET-1008 PO; +APIX5TAB3 PO; +ATOR40TA72 PO; +DOCU-148 PO; +FOLI1TAB27 PO; -IRON-32 PO; +LOSA-416 PO; +MAGN400O6 PO; +METH7.5T2 PO; +MULT-1085 PO; -NICO-687 TD; +PRE5T PO; +SENN-360 PO
[2024-06-15] MEDS: famotidine 20mg tablet PO ONE (06:10)
[2024-06-15] MEDS: vancomycin/NS 1 GM ADD-VANTAGE 250 ML IV ONE (06:10)
[2024-06-15] MEDS: tranexamic acid 650mg tablet PO ONE (06:11)
[2024-06-15] MEDS: ringers solution, lacted 1,000 ML IV SCH ×2 (06:12→07:40)
[2024-06-15] MEDS ORDERED: vancomycin 1,000mg inj ONE (06:40)
[2024-06-15] MEDS ORDERED: BUPIVACAINE/MELOXICAM 14 ML VIAL IL ONE (06:40)
[2024-06-15] MEDS: albuterol 2.5 MG/3 ML nebule NEB ONE (07:06)
[2024-06-15] MEDS ORDERED: BUPIVAcaine/PF 5 mg/ml 10ml ONE (07:28)
[2024-06-15] MEDS ORDERED: tetracaine 1% (10mg/ml) pres. free inj. ONE (07:28)
[2024-06-15] MEDS ORDERED: BUPIVACAINE liposomal/PF 13.3 MG/ML 10mL vial IM ONE (07:29)
[2024-06-15] MEDS ORDERED: MIDAZolam 1mg/ml 10ml vial ONE (07:31)
[2024-06-15] MEDS ORDERED: fentaNYL/PF 50MCG/1 ML 2ML syringe ONE ×2 (07:31→08:31)
[2024-06-15] MEDS ORDERED: ondansetron/PF 4mg/2ml inj IV PRN ×2 (07:40→10:15)
[2024-06-15] MEDS ORDERED: hydrALAZINE 20mg/ml inj. IV PRN (07:40)
[2024-06-15] MEDS ORDERED: morphine 4 MG/ML inj SYRINge IV PRN (07:40)
[2024-06-15] MEDS ORDERED: morphine 2 MG/ML inj. syringe IV PRN (07:40)
[2024-06-15] MEDS ORDERED: labetalol 20mg/4ml (5mg/ml) syringe IV PRN (07:40)
[2024-06-15] MEDS ORDERED: fentaNYL/PF 50MCG/1 ML 2ML syringe IV PRN ×2 (07:40)
[2024-06-15] MEDS ORDERED: sevoflurane 250ml liquid IH ONE (08:07)
[2024-06-15] MEDS ORDERED: propofol inj 20 ML IV ONE ×2 (08:32→08:58)
[2024-06-15] MEDS ORDERED: LIDOcaine 2% (20mg/ml) 5ml vial ONE (08:32)
[2024-06-15] MEDS ORDERED: acetaminophen 1,000mg/100ml IV 100 ML IV ONE (08:36)
[2024-06-15] MEDS ORDERED: ketamine 50 mg/ml 10ml vial ONE (09:05)
[2024-06-15] MEDS ORDERED: acetaminophen 325mg tablet PO PRN (10:15)
[2024-06-15] MEDS ORDERED: naloxone 0.4 mg/ml inj IV PRN (10:15)
[2024-06-15] MEDS ORDERED: magnesium hydroxide 30ml (MOM) UD suspension PO PRN ×2 (10:15)
[2024-06-15] MEDS ORDERED: bisacodyl 10mg suppository rectal RC PRN (10:15)
[2024-06-15] MEDS ORDERED: diphenhydrAMINE 25mg capsule PO PRN ×2 (10:15)
[2024-06-15] MEDS: potassium cl 20mEq in 1/2 NS 1,000 ML IV SCH (12:38)
[2024-06-15] MEDS: ceFAZolin 2gm in dextrose, iso 50 ML IV ONE (12:40)
[2024-06-15] MEDS: oxyCODONE IR 5mg (immed. release) tablet PO PRN (12:49)
[2024-06-15] MEDS: HYDROmorphone 1 mg/ml syringe IV PRN (13:35)
[2024-06-15] MEDS: acetaminophen 325mg tablet PO SCH (13:40)
[2024-06-15] MEDS: ceFAZolin/D5W- 1GM premix 50 ML IV SCH (15:47)
[2024-06-15] MEDS: sennosides 8.6mg tablet PO SCH (19:33)
[2024-06-15] MEDS: apixaban 5mg tablet PO SCH (19:34)
[2024-06-15] MEDS: docusate sod 100mg capsule PO SCH (19:34)
[2024-06-15] MEDS: atorvastatin 20mg tablet PO SCH (19:34)
[2024-06-15] MEDS: vancomycin/NS 1 GM ADD-VANTAGE 250 ML IV SCH (20:02)
[2024-06-15] MEDS ORDERED: sennosides 8.6mg tablet PO SCH (21:00)
[2024-06-16 06:00] VITALS: BP 115/65; PULSE 112; RESP 18; TEMP 98.3; O2SAT 94
[2024-06-16 06:02] LABS: BASOPHILS # (AUTO) 0.1 X10'3 (0-0.2); LYMPHOCYTES # (AUTO) 2.1 X10'3 (1.1-4.8); NEUTROPHILS # (AUTO) 8.5 X10'3 (1.8-7.7)
[2024-06-16 06:06] LABS: BASOPHILS % (AUTO) 0.7 % (0-1); EOSINOPHILS % (AUTO) 0.4 % (0-6); HEMATOCRIT 24.8 % (42.0-52.0); LYMPHOCYTES % (AUTO) 18.4 % (21-51); MEAN CORPUSCULAR HEMOGLOBIN 23.4 PG (27.0-31.0); MEAN CORPUSCULAR HGB CONC 32.1 g/dL (33.0-36.5); MEAN PLATELET VOLUME 6.3 FL (7.4-10.4); MONOCYTES # (AUTO) 0.8 X10'3 (0-0.9); MONOCYTES % (AUTO) 7.1 % (2-12); NEUTROPHILS % (AUTO) 73.4 % (42-75); PLATELET COUNT 752 X10'3 (140-440); RED CELL DISTRIBUTION WIDTH 17.5 % (11.5-14.5); WHITE BLOOD COUNT 11.5 X10'3 (4.5-11.0)
[2024-06-16 06:15] LABS: ANION GAP 9 (8-16); CHLORIDE 100 MMOL/L (99-107); POTASSIUM 4.2 MMOL/L (3.5-5.1); SODIUM 134 MMOL/L (135-145); TOTAL CARBON DIOXIDE 25.3 MMOL/L (24-32)
[2024-06-16 07:28] VITALS: BP 120/68; PULSE 117; RESP 16; TEMP 99.2; O2SAT 92
[2024-06-16 07:30] VITALS: RESP 16; O2SAT 92
[2024-06-16] MEDS: losartan 50mg tablet PO SCH (07:42)
[2024-06-16] MEDS: predniSONE 5mg tablet PO SCH (07:43)
[2024-06-16] MEDS: multivitamins, therapeutics tablet PO SCH (07:43)
[2024-06-16 11:32] VITALS: BP 96/54; PULSE 103; RESP 16; TEMP 99.8; O2SAT 97
[2024-06-16 18:00] VITALS: BP 94/54; PULSE 103; TEMP 98.9; O2SAT 93
[2024-06-16] MEDS: celeCOXIB 100mg capsule PO SCH (20:33)
[2024-06-16 22:00] VITALS: BP 107/69; PULSE 99; RESP 16; TEMP 98; O2SAT 98
[2024-06-17 06:00] VITALS: BP 99/58; PULSE 88; RESP 18; TEMP 97.5; O2SAT 98
[2024-06-17 06:00] LABS: BASOPHILS # (AUTO) 0.1 X10'3 (0-0.2); EOSINOPHILS # (AUTO) 0.3 X10'3 (0-0.9); LYMPHOCYTES # (AUTO) 2.5 X10'3 (1.1-4.8); MEAN CORPUSCULAR HEMOGLOBIN 23.5 PG (27.0-31.0); RED BLOOD COUNT 3.21 X10'6 (4.70-6.10); RED CELL DISTRIBUTION WIDTH 17.6 % (11.5-14.5)
[2024-06-17 06:03] LABS: BASOPHILS % (AUTO) 1.1 % (0-1); EOSINOPHILS % (AUTO) 2.8 % (0-6); HEMATOCRIT 23.3 % (42.0-52.0); HEMOGLOBIN 7.5 g/dl (14.0-17.9); LYMPHOCYTES % (AUTO) 23.3 % (21-51); MEAN CORPUSCULAR HGB CONC 32.4 g/dL (33.0-36.5); MEAN CORPUSCULAR VOLUME 72.5 FL (78-98); MEAN PLATELET VOLUME 6.5 FL (7.4-10.4); MONOCYTES # (AUTO) 0.9 X10'3 (0-0.9); NEUTROPHILS # (AUTO) 6.8 X10'3 (1.8-7.7); NEUTROPHILS % (AUTO) 63.8 % (42-75); PLATELET COUNT 677 X10'3 (140-440); WHITE BLOOD COUNT 10.6 X10'3 (4.5-11.0)
[2024-06-17 07:29] VITALS: BP 91/57; PULSE 89
[2024-06-17] MEDS: predniSONE 5mg tablet PO SCH (09:59)
[2024-06-17 10:00] VITALS: BP 93/55; PULSE 87; RESP 18; TEMP 97.6; O2SAT 94
[2024-06-17] MEDS: HYDROmorphone inj. 0.5 MG/0.5 ML DISP.SYRIN IV PRN (10:05)
[2024-06-17 18:00] VITALS: BP 122/72; PULSE 102; RESP 24; TEMP 98.1; O2SAT 94
[2024-06-17] MEDS ORDERED: acetaminophen 325mg tablet PO PRN (18:20)
[2024-06-17 22:00] VITALS: BP 124/71; PULSE 112; RESP 18; TEMP 98.6; O2SAT 97
[2024-06-18 06:00] VITALS: BP 94/62; PULSE 93; RESP 15; TEMP 98.7; O2SAT 93
[2024-06-18 07:08] LABS: BASOPHILS # (AUTO) 0.1 X10'3 (0-0.2); BASOPHILS % (AUTO) 0.6 % (0-1); EOSINOPHILS # (AUTO) 0.2 X10'3 (0-0.9); HEMOGLOBIN 7.8 g/dl (14.0-17.9); MONOCYTES # (AUTO) 0.9 X10'3 (0-0.9); NEUTROPHILS # (AUTO) 6.5 X10'3 (1.8-7.7); RED CELL DISTRIBUTION WIDTH 17.5 % (11.5-14.5)
[2024-06-18 07:11] LABS: EOSINOPHILS % (AUTO) 2.1 % (0-6); HEMATOCRIT 23.9 % (42.0-52.0); LYMPHOCYTES # (AUTO) 2.3 X10'3 (1.1-4.8); LYMPHOCYTES % (AUTO) 22.7 % (21-51); MEAN CORPUSCULAR HEMOGLOBIN 23.8 PG (27.0-31.0); MEAN CORPUSCULAR HGB CONC 32.5 g/dL (33.0-36.5); MEAN CORPUSCULAR VOLUME 73.1 FL (78-98); MEAN PLATELET VOLUME 6.8 FL (7.4-10.4); MONOCYTES % (AUTO) 9.4 % (2-12); NEUTROPHILS % (AUTO) 65.2 % (42-75); PLATELET COUNT 805 X10'3 (140-440); RED BLOOD COUNT 3.27 X10'6 (4.70-6.10)
[2024-06-18 10:00] VITALS: BP 103/60; PULSE 111; RESP 18; TEMP 97.5; O2SAT 94
[2024-06-18 10:34] VITALS: BP_SYST 103; PULSE 111
[2024-06-18 16:21] VITALS: RESP 16
[2024-06-18] MEDS: oxyCODONE IR 5mg (immed. release) tablet PO PRN (16:21)
== END 2024-06-18 16:45 | DRG 470 ==
LOC: PAS IN 05:19 → ORTHO 4S 13:18
PROVIDERS: ADMIT Orthopaedic Surgery; ATTEND Orthopaedic Surgery
PROC: 0SRD0J9 Replacement of Left Knee Joint with Synthetic Substitute, Cemented, Open Approach (ICD-10-PCS; 2024-06-15)
PROC: 8E0Y0CZ Robotic Assisted Procedure of Lower Extremity, Open Approach (ICD-10-PCS; 2024-06-15)
PROC: 3E0T3BZ Introduction of Anesthetic Agent into Peripheral Nerves and Plexi, Percutaneous Approach (ICD-10-PCS; 2024-06-15)
PROC: 8E0YXBZ Computer Assisted Procedure of Lower Extremity (ICD-10-PCS; principal; 2024-06-15 08:07)
DX: M17.12 Unilateral primary osteoarthritis, left knee (principal); M06.862 Other specified rheumatoid arthritis, left knee; Z79.01 Long term (current) use of anticoagulants; Z79.899 Other long term (current) drug therapy
CPT/HCPCS: 36415; 80051; 80053; 82948; 85025; 94640; 94760; 97110; 97162; 97530; A4215; A4615; A6446; A6449; A7000; C1713; C1776; C9088; G0378; J0131; J0665; J0666; J0690; J1171; J1885; J2003; J2250; J2704; J3010; J3370; J3480; J3490; J7120; J7512

== ENCOUNTER 2024-06-20 13:59 | Inpatient (IN) | payer MEDICARE, MEDICAID ==
[~2024-06-20] VITALS: Ht 175.3 cm; Wt 63.0 kg
[2024-06-20] MEDS: normal saline 1000ml 1,000 ML IV ONE (14:51)
[2024-06-20 15:24] LABS: BILIRUBIN,URINE NEGATIVE (Neg); CLARITY,URINE CLEAR (Clear); COLOR,URINE YELLOW (Yellow); GLUCOSE, URINE NEGATIVE (Neg); KETONES,URINE NEGATIVE (Neg); LEUKOCYTE ESTERASE ,URINE NEGATIVE (Neg); NITRITES, URINE NEGATIVE (Neg); OCCULT BLOOD,URINE NEGATIVE (Neg); PH,URINE 6.5 (4.8-8.0); PROTEIN,URINE NEGATIVE (Neg); UROBILINOGEN,URINE 0.2 E.U/dL (0.2-1.0)
[2024-06-20 15:24] LABS: ALBUMIN 2.1 G/DL (3.4-5.0); ANION GAP 8 (8-16); BASOPHILS # (AUTO) 0.1 X10'3 (0-0.2); BLOOD UREA NITROGEN 29 MG/DL (7-18); BUN/CREATININE RATIO 31.2 (10.0-20.0); C-REACTIVE PROTEIN 23.15 MG/DL (0.0-0.5); CALCIUM 8.9 MG/DL (8.5-10.1); CHLORIDE 98 MMOL/L (99-107); CREATININE 0.93 MG/DL (0.60-1.10); GLUCOSE 114 MG/DL (70-104); HEMOGLOBIN 7.9 g/dl (14.0-17.9); MAGNESIUM 2.4 MG/DL (1.5-2.4); MEAN PLATELET VOLUME 6.7 FL (7.4-10.4); POTASSIUM 5.1 MMOL/L (3.5-5.1); SODIUM 133 MMOL/L (135-145); TOTAL CARBON DIOXIDE 27.4 MMOL/L (24-32); WHITE BLOOD COUNT 10.2 X10'3 (4.5-11.0); eCRCL 68 ML/MIN; eGFR 81 ML/MIN
[2024-06-20 15:25] LABS: EOSINOPHILS # (AUTO) 0.2 X10'3 (0-0.9); EOSINOPHILS % (AUTO) 1.5 % (0-6); HEMATOCRIT 24.4 % (42.0-52.0); LYMPHOCYTES # (AUTO) 2.3 X10'3 (1.1-4.8); LYMPHOCYTES % (AUTO) 22.8 % (21-51); MEAN CORPUSCULAR HEMOGLOBIN 23.9 PG (27.0-31.0); MEAN CORPUSCULAR HGB CONC 32.6 g/dL (33.0-36.5); MEAN CORPUSCULAR VOLUME 73.3 FL (78-98); MONOCYTES % (AUTO) 9.8 % (2-12); NEUTROPHILS # (AUTO) 6.6 X10'3 (1.8-7.7); NEUTROPHILS % (AUTO) 64.9 % (42-75); PLATELET COUNT 993 X10'3 (140-440); RED BLOOD COUNT 3.32 X10'6 (4.70-6.10); RED CELL DISTRIBUTION WIDTH 17.9 % (11.5-14.5)
[2024-06-20 15:26] LABS: UA COLLECTION TYPE NON-SPECIFIED
[2024-06-20] MEDS ORDERED: iohexol 300mg/ml 100ml inj. ONE (16:23)
[2024-06-20] MEDS: oxyCODONE IR 5mg (immed. release) tablet PO ONE (17:03)
[2024-06-20] MEDS: morphine 4 MG/ML inj SYRINge IV ONE (18:40)
[2024-06-20] MEDS: piperacillin/tazo 3.375gm/50ml 50 ML IV ONE (18:41)
[2024-06-20 19:00] VITALS: BP 117/68; PULSE 96; RESP 16; TEMP 98.3; O2SAT 96
[2024-06-20] MEDS: vancomycin/NS 1 GM ADD-VANTAGE 250 ML IV ONE (19:26)
[2024-06-20] MEDS ORDERED: magnesium Cl slow-release 64mg tablet PO PRN (20:40)
[2024-06-20] MEDS ORDERED: famotidine 10mg tablet PO SCH (20:40)
[2024-06-20] MEDS ORDERED: magnesium sulf-water 4G/100mL 100 ML IV PRN (20:40)
[2024-06-20] MEDS ORDERED: potassium Cl 40MEQ/1/2NS 520ml 520 ML IV PRN (20:40)
[2024-06-20] MEDS ORDERED: mag hydrox/Alum hydrox/simeth 30ml oral suspension PO PRN (20:40)
[2024-06-20] MEDS ORDERED: magnesium hydroxide 30ml (MOM) UD suspension PO PRN (20:40)
[2024-06-20] MEDS ORDERED: potassium Cl 20 mEq SR tablet PO PRN ×2 (20:40)
[2024-06-20] MEDS ORDERED: ondansetron/PF 4mg/2ml inj IV PRN (20:40)
[2024-06-20] MEDS ORDERED: magnesium sulf-water 2g/50mL 50 ML IV PRN (20:40)
[2024-06-20] MEDS ORDERED: acetaminophen 325mg tablet PO PRN (20:40)
[2024-06-20] MEDS ORDERED: PERFLUTREN PROTEIN-A MICROSPHR (Optison) 0.22 MG/ML 3ML VIAL IV PRN (20:40)
[2024-06-20 21:13] LABS: HEMOGLOBIN A1C 6.4 % (4.5-6.2)
[2024-06-20 21:15] LABS: PRO BRAIN NATRIURETIC PEPTIDE 159 PG/ML (0-125)
[2024-06-20] MEDS ORDERED: ipratropium/albuterol 3ml nebule NEB PRN (21:30)
[2024-06-20] MEDS ORDERED: famotidine 20mg tablet PO SCH (22:14)
[2024-06-20] MEDS: HYDROmorphone inj. 0.5 MG/0.5 ML DISP.SYRIN IV PRN (22:28)
[2024-06-20 22:29] LABS: APTT 27 SECONDS (22-32); INR 1.1 INR
[2024-06-20 23:10] VITALS: PULSE 84; RESP 14; O2SAT 93
[2024-06-21] VITALS (7 sets, daily range): BP systolic 99–122; BP diastolic 62–77; PULSE 83–98; RESP 16–20; TEMP 98.1–99.4; O2SAT 94–99
[2024-06-21] MEDS: piperacillin/tazo 3.375gm/50ml 50 ML IV SCH (00:33)
[2024-06-21 02:01] LABS: BILIRUBIN,URINE NEGATIVE (Neg); CLARITY,URINE CLEAR (Clear); COLOR,URINE YELLOW (Yellow); GLUCOSE, URINE NEGATIVE (Neg); KETONES,URINE NEGATIVE (Neg); LEUKOCYTE ESTERASE ,URINE NEGATIVE (Neg); NITRITES, URINE NEGATIVE (Neg); OCCULT BLOOD,URINE TRACE-INTACT (Neg); PROTEIN,URINE NEGATIVE (Neg); UROBILINOGEN,URINE 0.2 E.U/dL (0.2-1.0)
[2024-06-21 02:06] LABS: UA COLLECTION TYPE VOIDED
[2024-06-21 02:09] LABS: BACTERIA,URINE NONE SEEN /HPF (Neg); RBC,URINE 0-2 /HPF (0-2); SQUAMOUS EPITHELIAL CELL,UR NONE SEEN /LPF (FEW); WBC,URINE NONE SEEN /HPF (0-4)
[2024-06-21 05:37] LABS: BASOPHILS # (AUTO) 0.1 X10'3 (0-0.2); EOSINOPHILS # (AUTO) 0.3 X10'3 (0-0.9); LYMPHOCYTES % (AUTO) 24.2 % (21-51); RED CELL DISTRIBUTION WIDTH 17.9 % (11.5-14.5)
[2024-06-21 05:40] LABS: BASOPHILS % (AUTO) 1.1 % (0-1); EOSINOPHILS % (AUTO) 2.9 % (0-6); HEMATOCRIT 22.1 % (42.0-52.0); HEMOGLOBIN 7.1 g/dl (14.0-17.9); LYMPHOCYTES # (AUTO) 2.7 X10'3 (1.1-4.8); MEAN CORPUSCULAR HEMOGLOBIN 23.3 PG (27.0-31.0); MEAN CORPUSCULAR VOLUME 72.7 FL (78-98); MEAN PLATELET VOLUME 6.8 FL (7.4-10.4); MONOCYTES # (AUTO) 1.1 X10'3 (0-0.9); MONOCYTES % (AUTO) 10.3 % (2-12); NEUTROPHILS # (AUTO) 6.9 X10'3 (1.8-7.7); NEUTROPHILS % (AUTO) 61.5 % (42-75); PLATELET COUNT 926 X10'3 (140-440); RED BLOOD COUNT 3.03 X10'6 (4.70-6.10); WHITE BLOOD COUNT 11.1 X10'3 (4.5-11.0)
[2024-06-21 05:55] LABS: ALANINE AMINOTRANSFERASE 38 U/L (12-78); ALBUMIN 1.9 G/DL (3.4-5.0); ALBUMIN/GLOBULIN RATIO 0.3 (1.1-1.5); ALKALINE PHOSPHATASE 108 IU/L (46-116); ANION GAP 9 (8-16); ASPARTATE AMINO TRANSFERASE 37 U/L (10-37); BILIRUBIN,TOTAL 0.4 MG/DL (0.1-1.0); BLOOD UREA NITROGEN 21 MG/DL (7-18); BUN/CREATININE RATIO 27.6 (10.0-20.0); CALCIUM 8.5 MG/DL (8.5-10.1); CHLORIDE 101 MMOL/L (99-107); CHOL/HDL RATIO 3.1 (0.00-4.99); CHOLESTEROL 102 MG/DL (0-200); CREATININE 0.76 MG/DL (0.60-1.10); GLUCOSE 102 MG/DL (70-104); HDL CHOLESTEROL 33 MG/DL (35-60); LDL CHOLESTEROL 57 MG/DL (50-100); MAGNESIUM 2.1 MG/DL (1.5-2.4); POTASSIUM 4.6 MMOL/L (3.5-5.1); SODIUM 136 MMOL/L (135-145); TOTAL CARBON DIOXIDE 26.5 MMOL/L (24-32); TOTAL PROTEIN 7.7 G/DL (6.4-8.2); TRIGLYCERIDES 56 MG/DL (20-135); eCRCL 83 ML/MIN; eGFR > 90 ML/MIN
[2024-06-21] MEDS: metFORMIN 500mg tablet PO SCH (07:00)
[2024-06-21] MEDS: vancomycin/NS 1 GM ADD-VANTAGE 250 ML IV SCH (07:19)
[2024-06-21] MEDS: docusate sod 100mg capsule PO SCH (07:21)
[2024-06-21] MEDS: famotidine 20mg tablet PO SCH (07:21)
[2024-06-21] MEDS: K and/or MAG REPLACEMENT MC SCH (07:32)
[2024-06-21] MEDS: heparin, porcine 5000 units/ml vial SQ SCH (08:00)
[2024-06-21] MEDS: HYDROmorphone/PF 0.2 MG/ML SYRINGE IV PRN (09:03)
[2024-06-21] MEDS: lactose-reduced food (Ensure Enlive) - 237ml bottle PO SCH (18:00)
[2024-06-22] MEDS: HYDROmorphone inj. 0.5 MG/0.5 ML DISP.SYRIN IV ONE (04:21)
[2024-06-22 06:00] VITALS: BP_SYST 170; BP_SYST 98; BP_DIAS 58; BP_DIAS 69; PULSE 68; RESP 18; TEMP 98.3; O2SAT 97
[2024-06-22] MEDS: VANCOMYCIN LEVEL IV ONE (07:30)
[2024-06-22 08:00] VITALS: RESP 16; O2SAT 98
[2024-06-22 08:15] LABS: ALANINE AMINOTRANSFERASE 34 U/L (12-78); ALBUMIN 1.9 G/DL (3.4-5.0); ALBUMIN/GLOBULIN RATIO 0.3 (1.1-1.5); ALKALINE PHOSPHATASE 106 IU/L (46-116); ANION GAP 8 (8-16); ASPARTATE AMINO TRANSFERASE 28 U/L (10-37); BILIRUBIN,TOTAL 0.3 MG/DL (0.1-1.0); BLOOD UREA NITROGEN 17 MG/DL (7-18); BUN/CREATININE RATIO 23.3 (10.0-20.0); CALCIUM 8.6 MG/DL (8.5-10.1); CHLORIDE 102 MMOL/L (99-107); CREATININE 0.73 MG/DL (0.60-1.10); GLUCOSE 100 MG/DL (70-104); MAGNESIUM 2.1 MG/DL (1.5-2.4); POTASSIUM 4.2 MMOL/L (3.5-5.1); SODIUM 135 MMOL/L (135-145); TOTAL CARBON DIOXIDE 25.3 MMOL/L (24-32); TOTAL PROTEIN 7.9 G/DL (6.4-8.2); VANCOMYCIN,TROUGH 15.4 ug/mL (10.0-20.0); eCRCL 86 ML/MIN; eGFR > 90 ML/MIN
[2024-06-22 08:22] LABS: % IRON SATURATION 7 % (11-46); IRON 13 UG/DL (53-167); TOTAL IRON BINDING CAPACITY 189 UG/DL (259-388)
[2024-06-22 08:25] LABS: BASOPHILS # (AUTO) 0.1 X10'3 (0-0.2); EOSINOPHILS # (AUTO) 0.3 X10'3 (0-0.9); EOSINOPHILS % (AUTO) 3.4 % (0-6); HEMATOCRIT 23.1 % (42.0-52.0); HEMOGLOBIN 7.6 g/dl (14.0-17.9); LYMPHOCYTES % (AUTO) 34.2 % (21-51); MEAN CORPUSCULAR HEMOGLOBIN 23.9 PG (27.0-31.0); MEAN CORPUSCULAR HGB CONC 32.8 g/dL (33.0-36.5); MEAN CORPUSCULAR VOLUME 72.6 FL (78-98); MEAN PLATELET VOLUME 6.6 FL (7.4-10.4); MONOCYTES # (AUTO) 0.7 X10'3 (0-0.9); MONOCYTES % (AUTO) 8.3 % (2-12); NEUTROPHILS # (AUTO) 4.7 X10'3 (1.8-7.7); NEUTROPHILS % (AUTO) 53.1 % (42-75); PLATELET COUNT 946 X10'3 (140-440); RED BLOOD COUNT 3.18 X10'6 (4.70-6.10); RED CELL DISTRIBUTION WIDTH 17.7 % (11.5-14.5); WHITE BLOOD COUNT 8.9 X10'3 (4.5-11.0)
[2024-06-22 10:30] VITALS: BP 104/70; PULSE 75; RESP 18; TEMP 98; O2SAT 95
[2024-06-22] MEDS: HYDROcodone/acetaminophen 10/325mg tab PO PRN (14:44)
[2024-06-22 15:28] VITALS: PULSE 91; RESP 18; O2SAT 98
[2024-06-22] MEDS: HYDROcodone/acetaminophen 5mg/325mg tablet PO PRN (19:02)
[2024-06-22 22:00] VITALS: BP 90/56; PULSE 70; RESP 16; TEMP 97.8; O2SAT 98
[2024-06-23] MEDS ORDERED: vancomycin/NS 1 GM ADD-VANTAGE 250 ML IV SCH (01:03)
[2024-06-23] MEDS: neomy sulf/bacitrac zn/polymixin b oint 28.4 gm tube TP SCH (01:18)
[2024-06-23 06:05] LABS: BASOPHILS # (AUTO) 0.1 X10'3 (0-0.2); EOSINOPHILS # (AUTO) 0.3 X10'3 (0-0.9); HEMOGLOBIN 7.3 g/dl (14.0-17.9)
[2024-06-23 06:08] LABS: EOSINOPHILS % (AUTO) 3.2 % (0-6); HEMATOCRIT 22.5 % (42.0-52.0); LYMPHOCYTES % (AUTO) 28.1 % (21-51); MEAN CORPUSCULAR HEMOGLOBIN 23.5 PG (27.0-31.0); MEAN CORPUSCULAR HGB CONC 32.5 g/dL (33.0-36.5); MEAN CORPUSCULAR VOLUME 72.2 FL (78-98); MEAN PLATELET VOLUME 6.4 FL (7.4-10.4); MONOCYTES % (AUTO) 9.6 % (2-12); NEUTROPHILS # (AUTO) 6.2 X10'3 (1.8-7.7); NEUTROPHILS % (AUTO) 58.1 % (42-75); RED BLOOD COUNT 3.11 X10'6 (4.70-6.10); RED CELL DISTRIBUTION WIDTH 17.5 % (11.5-14.5); WHITE BLOOD COUNT 10.7 X10'3 (4.5-11.0)
[2024-06-23 06:31] LABS: ALANINE AMINOTRANSFERASE 32 U/L (12-78); ALBUMIN 1.9 G/DL (3.4-5.0); ALBUMIN/GLOBULIN RATIO 0.3 (1.1-1.5); ALKALINE PHOSPHATASE 97 IU/L (46-116); ANION GAP 7 (8-16); ASPARTATE AMINO TRANSFERASE 25 U/L (10-37); BILIRUBIN,TOTAL 0.3 MG/DL (0.1-1.0); BLOOD UREA NITROGEN 16 MG/DL (7-18); BUN/CREATININE RATIO 20.3 (10.0-20.0); CALCIUM 8.5 MG/DL (8.5-10.1); CHLORIDE 102 MMOL/L (99-107); CREATININE 0.79 MG/DL (0.60-1.10); GLUCOSE 105 MG/DL (70-104); MAGNESIUM 1.9 MG/DL (1.5-2.4); POTASSIUM 4.1 MMOL/L (3.5-5.1); SODIUM 135 MMOL/L (135-145); TOTAL CARBON DIOXIDE 26.2 MMOL/L (24-32); TOTAL PROTEIN 7.7 G/DL (6.4-8.2); eCRCL 80 ML/MIN; eGFR > 90 ML/MIN
[2024-06-23 07:21] LABS: PLATELET COUNT 1073 X10'3 (140-440)
[2024-06-23 10:00] VITALS: BP 100/62; PULSE 75; RESP 16; TEMP 97.6; O2SAT 97
[2024-06-23] MEDS: iron sucrose complex injection 300 MG in normal saline 250ml IV soln 250 ML IV SCH (10:09)
[2024-06-23] MEDS: piperacillin/tazo 3.375gm/50ml 50 ML IV SCH (10:09)
[2024-06-23] MEDS ORDERED: DOXY-224 PO (10:30)
[2024-06-23] MEDS ORDERED: AMOX-580 PO (10:30)
[2024-06-23 13:52] VITALS: RESP 16
== END 2024-06-23 17:33 | DRG 862 ==
LOC: ER 14:00 → ED HOLD 20:00 → EDBEDREQ 20:46 → ORTHO 4S 21:07
PROVIDERS: ADMIT Internal Medicine Critical Care Medicine; ATTEND Family Medicine
PROC: BQ2 Imaging, Non-Axial Lower Bones, Computerized Tomography (CT Scan) (ICD-10-PCS; principal; 2024-06-20)
DX: T81.49XA Infection following a procedure, other surgical site, initial encounter (principal); E43 Unspecified severe protein-calorie malnutrition; L03.116 Cellulitis of left lower limb; E87.1 Hypo-osmolality and hyponatremia; J84.9 Interstitial pulmonary disease, unspecified; N18.30 Chronic kidney disease, stage 3 unspecified; E87.8 Other disorders of electrolyte and fluid balance, not elsewhere classified; D75.838 Other thrombocytosis; J44.9 Chronic obstructive pulmonary disease, unspecified; G89.4 Chronic pain syndrome; Y83.8 Other surgical procedures as the cause of abnormal reaction of the patient, or of later complication, without mention of misadventure at the time of the procedure; Y92.89 Other specified places as the place of occurrence of the external cause; Z79.01 Long term (current) use of anticoagulants; Z79.899 Other long term (current) drug therapy; Z68.20 Body mass index [BMI] 20.0-20.9, adult
CPT/HCPCS: 36415; 71045; 73560; 73701; 80048; 80053; 80061; 80202; 81001; 81003; 83036; 83540; 83550; 83605; 83735; 83880; 84145; 85025; 85610; 85651; 85730; 86140; 87040; 87081; 93005; 93306; 94760; 96361; 96365; 96367; 96375; 97110; 97161; 97530; 99285; A6258; A6449; G0378; J1171; J1644; J1756; J2270; J2543; J3370; J7030; J7050; Q9967